=== PATIENT | male | born 1940 | race Caucasian/White ===

== ENCOUNTER 2016-07-07 13:50 | Inpatient (IN) | payer OTHER ==
[~2016-07-07] VITALS: Ht 167.6 cm; Wt 75.4 kg
[~2016-07-07 13:50] MED LIST: AMIO200T2 PO; AMLO-511 PO; ASCO500 PO; ASPI81TA42 PO; BETH25 PO; BIMA12.5OS OU; BRIM155OS OU; FINA5TAB41 PO; FLUT1DIS5 IH; FURO20TA4 PO; LEVO75 PO; METF500T7 PO; MONT10TA24 PO; PANT40TA25 PO; PRED5L PO; RIVA20TA PO; ROSU10 PO; TAMS0.4C32 PO; TIMO.5OS OU; TIOT185 IH; VITAD1000 PO
[2016-07-07 14:32] LABS: GLUCOSE,POINT OF CARE 91 MG/DL (70-110)
[2016-07-07 15:14] LABS: BASOPHILS % (AUTO) 0.4 % (0.0-2.0); HEMOGLOBIN 9.5 g/dL (13.5-17.5); LYMPHOCYTES # (AUTO) 0.8 K/uL (1.0-4.8); LYMPHOCYTES % (AUTO) 9.5 % (22.0-44.0); MEAN CORPUSCULAR HEMOGLOBIN 24.2 pg (26.0-34.0); MEAN CORPUSCULAR HGB CONC 31.7 G/dL (31.0-37.0); MEAN CORPUSCULAR VOLUME 76 fL (80-100); MONOCYTES % (AUTO) 12.4 % (2.0-9.0); NEUTROPHILS % (AUTO) 75.7 % (40.0-70.0); PLATELET COUNT (AUTO) 269 K/uL (150-450); RED BLOOD CELL COUNT(AUTO) 3.93 MIL/uL (4.50-5.90); RED CELL DISTRIBUTION WIDTH 17.2 % (11.5-14.5)
[2016-07-07 15:33] LABS: ANION GAP 8 mmol/L (8-16); CALCIUM, TOTAL 8.4 mg/dL (8.8-10.5); CARBON DIOXIDE 28 mmol/L (22-29); CHLORIDE 105 mmol/L (98-107); GLOMERULAR FILTR. RATE CALC > 60 mL/min (>60); POTASSIUM 3.6 mmol/L (3.5-5.1); SODIUM SERUM 141 mmol/L (136-145); UREA NITROGEN, BLOOD 13 mg/dL (7-18)
[2016-07-07 15:46] LABS: ALANINE AMINOTRANSFERASE 11 U/L (12-78); ALBUMIN 3.4 g/dL (3.4-5.0); ASPARTATE AMINOTRANSFERASE 12 U/L (15-37); B-TYPE NATRIURETIC PEPTIDE 313 pg/mL (0-100); BILIRUBIN,TOTAL 0.4 mg/dL (0.1-1.0); THYROID STIMULATING HORMONE 1.45 uIU/mL (0.36-3.74); TOTAL PROTEIN, SERUM 7.4 g/dL (6.4-8.2)
[2016-07-07 16:13] LABS: RBC MORPHOLOGY COMMENT ABNORMAL RBC MORPH
[2016-07-07 16:26] LABS: ADD UA MICROSCOPIC NO; APPEARANCE,URINE CLEAR (CLEAR); GLUCOSE, URINE (UA) NEGATIVE (NEGATIVE); KETONES,URINE NEGATIVE (NEGATIVE); LEUKOCYTE ESTERASE ,URINE NEGATIVE (NEGATIVE); OCCULT BLOOD,URINE NEGATIVE (NEGATIVE); PROTEIN,URINE NEGATIVE (NEGATIVE)
[2016-07-07 17:11] LABS: INR 1.4 (0.9-1.1); PROTHROMBIN TIME 15.1 SEC (9.4-11.6)
[2016-07-07] MEDS ORDERED: FUROSEMIDE 40 MG/4 ML VIAL IVP ONE (17:15)
[2016-07-07] MEDS ORDERED: IPRATROPIUM BROMIDE 0.5 MG/2.5 ML NEB SOLUTION NEB ONE (17:15)
[2016-07-07] MEDS ORDERED: NITROGLYCERIN 2% (1 GM=INCH) PACKET TP ONE (17:15)
[2016-07-07] MEDS ORDERED: ALBUTEROL SULFATE 2.5 MG/0.5 ML NEB SOLUTION NEB ONE (17:15)
[2016-07-07] MEDS ORDERED: 0.9% SODIUM CHLORIDE 10 ML SYRINGE IVP PRN (18:45)
[2016-07-07] MEDS ORDERED: ACETAMINOPHEN 325 MG TABLET PO PRN (18:45)
[2016-07-07] MEDS ORDERED: ONDANSETRON HCL 4 MG/2 ML VIAL IVP PRN (18:45)
[2016-07-07] MEDS ORDERED: IPRATROPIUM BROMIDE 0.5 MG/2.5 ML NEB SOLUTION NEB SCH (20:00)
[2016-07-07] MEDS ORDERED: ALBUTEROL SULFATE 2.5 MG/0.5 ML NEB SOLUTION NEB SCH (20:00)
[2016-07-07 21:51] VITALS: BP 124/67
[2016-07-08] VITALS (7 sets, daily range): BP systolic 100–125; BP diastolic 56–92
[2016-07-08] MEDS: RIVAROXABAN 20 MG TABLET PO SCH ×2 (00:26→17:22)
[2016-07-08] MEDS: LEVOTHYROXINE SODIUM 75 MCG TABLET PO SCH (06:23)
[2016-07-08] MEDS: HYDROCODONE/ACETAMINOPHEN 5-325 MG TABLET PO PRN ×2 (06:49→13:48)
[2016-07-08 07:40] LABS: BASOPHILS % (AUTO) 0.4 % (0.0-2.0); EOSINOPHILS % (AUTO) 2.5 % (1.0-6.0); HEMOGLOBIN 9.7 g/dL (13.5-17.5); LYMPHOCYTES # (AUTO) 0.7 K/uL (1.0-4.8); LYMPHOCYTES % (AUTO) 10.2 % (22.0-44.0); MEAN CORPUSCULAR HEMOGLOBIN 23.9 pg (26.0-34.0); MEAN CORPUSCULAR HGB CONC 31.3 G/dL (31.0-37.0); MEAN CORPUSCULAR VOLUME 76 fL (80-100); MONOCYTES % (AUTO) 14.8 % (2.0-9.0); NEUTROPHILS # (AUTO) 4.8 K/uL (1.8-7.7); NEUTROPHILS % (AUTO) 72.1 % (40.0-70.0); PLATELET COUNT (AUTO) 277 K/uL (150-450); RED BLOOD CELL COUNT(AUTO) 4.06 MIL/uL (4.50-5.90); RED CELL DISTRIBUTION WIDTH 17.7 % (11.5-14.5); WHITE BLOOD COUNT (AUTO) 6.7 K/uL (4.5-11.0)
[2016-07-08 07:58] LABS: ALANINE AMINOTRANSFERASE 11 U/L (12-78); ALBUMIN 3.2 g/dL (3.4-5.0); ANION GAP 9 mmol/L (8-16); ASPARTATE AMINOTRANSFERASE 11 U/L (15-37); BILIRUBIN,TOTAL 0.5 mg/dL (0.1-1.0); CALCIUM, TOTAL 8.8 mg/dL (8.8-10.5); CARBON DIOXIDE 30 mmol/L (22-29); CHLORIDE 104 mmol/L (98-107); CREATININE 0.78 mg/dL (0.60-1.30); GLOMERULAR FILTR. RATE CALC > 60 mL/min (>60); POTASSIUM 3.7 mmol/L (3.5-5.1); SODIUM SERUM 143 mmol/L (136-145); TOTAL PROTEIN, SERUM 7.5 g/dL (6.4-8.2); UREA NITROGEN, BLOOD 11 mg/dL (7-18)
[2016-07-08] MEDS: BRIMONIDINE TARTRATE 0.15% 5 ML OPHTHALMIC SOLUTION OU SCH (08:06)
[2016-07-08] MEDS: TIMOLOL MALEATE 0.5% 5 ML OPHTHALMIC SOLUTION OU SCH (08:06)
[2016-07-08] MEDS: FUROSEMIDE 20 MG TABLET PO SCH (08:07)
[2016-07-08] MEDS: ASCORBIC ACID 500 MG TABLET PO SCH (08:07)
[2016-07-08] MEDS: MetFORMIN HCL 500 MG ER TABLET PO SCH (08:07)
[2016-07-08] MEDS: MONTELUKAST SODIUM 10 MG TABLET PO SCH (08:07)
[2016-07-08] MEDS: ROSUVASTATIN CALCIUM 10 MG TABLET PO SCH (08:07)
[2016-07-08] MEDS: TAMSULOSIN HCL 0.4 MG CAPSULE PO SCH (08:07)
[2016-07-08] MEDS: BETHANECHOL CHLORIDE 25 MG TABLET PO SCH (08:07)
[2016-07-08] MEDS: PANTOPRAZOLE SODIUM 40 MG DR TABLET PO SCH (08:07)
[2016-07-08] MEDS: FINASTERIDE 5 MG TABLET PO SCH (08:07)
[2016-07-08] MEDS: BIMATOPROST 0.01% 2.5 ML OPHTHALMIC SOLUTION OU SCH (08:07)
[2016-07-08] MEDS: AMIODARONE HCL 200 MG TABLET PO SCH (08:07)
[2016-07-08] MEDS: AmLODIPine BESYLATE 5 MG TABLET PO SCH (08:07)
[2016-07-08] MEDS: CHOLECALCIFEROL (VIT D3) 1,000 UNITS TABLET PO SCH (08:08)
[2016-07-09] MEDS: HYDROCODONE/ACETAMINOPHEN 5-325 MG TABLET PO PRN ×3 (02:02→18:03)
[2016-07-09 05:30] VITALS: BP 112/71
[2016-07-09] MEDS: LEVOTHYROXINE SODIUM 75 MCG TABLET PO SCH (06:47)
[2016-07-09 07:58] VITALS: BP 121/76
[2016-07-09] MEDS: TAMSULOSIN HCL 0.4 MG CAPSULE PO SCH (09:51)
[2016-07-09] MEDS: BETHANECHOL CHLORIDE 25 MG TABLET PO SCH (09:51)
[2016-07-09] MEDS: CHOLECALCIFEROL (VIT D3) 1,000 UNITS TABLET PO SCH (09:52)
[2016-07-09] MEDS: AmLODIPine BESYLATE 5 MG TABLET PO SCH (09:52)
[2016-07-09] MEDS: MONTELUKAST SODIUM 10 MG TABLET PO SCH (09:52)
[2016-07-09] MEDS: MetFORMIN HCL 500 MG ER TABLET PO SCH (09:52)
[2016-07-09] MEDS: BIMATOPROST 0.01% 2.5 ML OPHTHALMIC SOLUTION OU SCH (09:52)
[2016-07-09] MEDS: AMIODARONE HCL 200 MG TABLET PO SCH (09:52)
[2016-07-09] MEDS: PANTOPRAZOLE SODIUM 40 MG DR TABLET PO SCH (09:52)
[2016-07-09] MEDS: BRIMONIDINE TARTRATE 0.15% 5 ML OPHTHALMIC SOLUTION OU SCH (09:52)
[2016-07-09] MEDS: FINASTERIDE 5 MG TABLET PO SCH (09:52)
[2016-07-09] MEDS: FUROSEMIDE 20 MG TABLET PO SCH (09:52)
[2016-07-09] MEDS: ASCORBIC ACID 500 MG TABLET PO SCH (09:52)
[2016-07-09] MEDS: ROSUVASTATIN CALCIUM 10 MG TABLET PO SCH (09:52)
[2016-07-09] MEDS: TIMOLOL MALEATE 0.5% 5 ML OPHTHALMIC SOLUTION OU SCH (09:52)
[2016-07-09 11:10] VITALS: BP 114/65
[2016-07-09 16:29] VITALS: BP 101/65
[2016-07-09] MEDS: RIVAROXABAN 20 MG TABLET PO SCH (18:03)
[2016-07-09 19:23] VITALS: BP 106/64
[2016-07-09 23:31] VITALS: BP 103/54
[2016-07-10] MEDS: HYDROCODONE/ACETAMINOPHEN 5-325 MG TABLET PO PRN (02:59)
[2016-07-10 04:26] VITALS: BP 107/65
[2016-07-10] MEDS: LEVOTHYROXINE SODIUM 75 MCG TABLET PO SCH (06:31)
[2016-07-10 07:56] VITALS: BP 109/74
[2016-07-10] MEDS: MetFORMIN HCL 500 MG ER TABLET PO SCH (08:33)
[2016-07-10] MEDS: FUROSEMIDE 20 MG TABLET PO SCH (08:34)
[2016-07-10] MEDS: TAMSULOSIN HCL 0.4 MG CAPSULE PO SCH (08:34)
[2016-07-10] MEDS: FINASTERIDE 5 MG TABLET PO SCH (08:34)
[2016-07-10] MEDS: BETHANECHOL CHLORIDE 25 MG TABLET PO SCH (08:34)
[2016-07-10] MEDS: ROSUVASTATIN CALCIUM 10 MG TABLET PO SCH (08:34)
[2016-07-10] MEDS: CHOLECALCIFEROL (VIT D3) 1,000 UNITS TABLET PO SCH (08:34)
[2016-07-10] MEDS: AmLODIPine BESYLATE 5 MG TABLET PO SCH (08:35)
[2016-07-10] MEDS: ASCORBIC ACID 500 MG TABLET PO SCH (08:35)
[2016-07-10] MEDS: AMIODARONE HCL 200 MG TABLET PO SCH (08:35)
[2016-07-10] MEDS: MONTELUKAST SODIUM 10 MG TABLET PO SCH (08:35)
[2016-07-10] MEDS: TIMOLOL MALEATE 0.5% 5 ML OPHTHALMIC SOLUTION OU SCH (08:35)
[2016-07-10] MEDS: PANTOPRAZOLE SODIUM 40 MG DR TABLET PO SCH (08:35)
[2016-07-10] MEDS: BIMATOPROST 0.01% 2.5 ML OPHTHALMIC SOLUTION OU SCH (08:36)
[2016-07-10] MEDS: BRIMONIDINE TARTRATE 0.15% 5 ML OPHTHALMIC SOLUTION OU SCH (08:36)
[2016-07-10 11:53] VITALS: BP 104/61
[2016-07-10 15:58] VITALS: BP 116/75
[2016-07-10] MEDS: RIVAROXABAN 20 MG TABLET PO SCH (18:06)
[2016-07-10 19:19] VITALS: BP 111/63
[2016-07-11 00:12] VITALS: BP 114/70
[2016-07-11 05:04] VITALS: BP 108/56
[2016-07-11] MEDS: LEVOTHYROXINE SODIUM 75 MCG TABLET PO SCH (06:35)
[2016-07-11 07:26] LABS: BASOPHILS % (AUTO) 0.3 % (0.0-2.0); EOSINOPHILS % (AUTO) 2.3 % (1.0-6.0); HEMOGLOBIN 10.6 g/dL (13.5-17.5); LYMPHOCYTES # (AUTO) 0.8 K/uL (1.0-4.8); LYMPHOCYTES % (AUTO) 10.4 % (22.0-44.0); MEAN CORPUSCULAR HEMOGLOBIN 23.8 pg (26.0-34.0); MEAN CORPUSCULAR HGB CONC 31.1 G/dL (31.0-37.0); MEAN CORPUSCULAR VOLUME 77 fL (80-100); MONOCYTES % (AUTO) 13.6 % (2.0-9.0); NEUTROPHILS # (AUTO) 5.6 K/uL (1.8-7.7); NEUTROPHILS % (AUTO) 73.4 % (40.0-70.0); PLATELET COUNT (AUTO) 287 K/uL (150-450); RED BLOOD CELL COUNT(AUTO) 4.43 MIL/uL (4.50-5.90); WHITE BLOOD COUNT (AUTO) 7.6 K/uL (4.5-11.0)
[2016-07-11 07:48] VITALS: BP 112/60
[2016-07-11 07:58] LABS: ANION GAP 6 mmol/L (8-16); CALCIUM, TOTAL 8.7 mg/dL (8.8-10.5); CARBON DIOXIDE 33 mmol/L (22-29); CHLORIDE 101 mmol/L (98-107); GLOMERULAR FILTR. RATE CALC > 60 mL/min (>60); POTASSIUM 4.1 mmol/L (3.5-5.1); SODIUM SERUM 140 mmol/L (136-145); UREA NITROGEN, BLOOD 17 mg/dL (7-18)
[2016-07-11] MEDS: MONTELUKAST SODIUM 10 MG TABLET PO SCH (08:24)
[2016-07-11] MEDS: BETHANECHOL CHLORIDE 25 MG TABLET PO SCH (08:24)
[2016-07-11] MEDS: AMIODARONE HCL 200 MG TABLET PO SCH (08:24)
[2016-07-11] MEDS: FUROSEMIDE 20 MG TABLET PO SCH (08:24)
[2016-07-11] MEDS: MetFORMIN HCL 500 MG ER TABLET PO SCH (08:24)
[2016-07-11] MEDS: PANTOPRAZOLE SODIUM 40 MG DR TABLET PO SCH (08:25)
[2016-07-11] MEDS: FINASTERIDE 5 MG TABLET PO SCH (08:25)
[2016-07-11] MEDS: TAMSULOSIN HCL 0.4 MG CAPSULE PO SCH (08:25)
[2016-07-11] MEDS: ROSUVASTATIN CALCIUM 10 MG TABLET PO SCH (08:25)
[2016-07-11] MEDS: TIMOLOL MALEATE 0.5% 5 ML OPHTHALMIC SOLUTION OU SCH (08:25)
[2016-07-11] MEDS: BRIMONIDINE TARTRATE 0.15% 5 ML OPHTHALMIC SOLUTION OU SCH (08:25)
[2016-07-11] MEDS: AmLODIPine BESYLATE 5 MG TABLET PO SCH (08:25)
[2016-07-11] MEDS: BIMATOPROST 0.01% 2.5 ML OPHTHALMIC SOLUTION OU SCH (08:25)
[2016-07-11] MEDS: ASCORBIC ACID 500 MG TABLET PO SCH (08:26)
[2016-07-11] MEDS: CHOLECALCIFEROL (VIT D3) 1,000 UNITS TABLET PO SCH (08:29)
[2016-07-11 09:10] LABS: RBC MORPHOLOGY COMMENT ABNORMAL RBC MORPH
[2016-07-11 10:58] VITALS: BP 109/64
[2016-07-11 15:46] VITALS: BP 111/58
[2016-07-11] MEDS: RIVAROXABAN 20 MG TABLET PO SCH (18:37)
[2016-07-11] MEDS ORDERED: MAGNESIUM HYDROXIDE SUSPENSION 30 ML UDCUP PO PRN (19:15)
[2016-07-11 19:58] VITALS: BP 132/65
[2016-07-12] VITALS (7 sets, daily range): BP systolic 112–128; BP diastolic 58–73
[2016-07-12] MEDS: LEVOTHYROXINE SODIUM 75 MCG TABLET PO SCH (06:36)
[2016-07-12] MEDS: ROSUVASTATIN CALCIUM 10 MG TABLET PO SCH (08:10)
[2016-07-12] MEDS: MONTELUKAST SODIUM 10 MG TABLET PO SCH (08:10)
[2016-07-12] MEDS: AmLODIPine BESYLATE 5 MG TABLET PO SCH (08:10)
[2016-07-12] MEDS: PANTOPRAZOLE SODIUM 40 MG DR TABLET PO SCH (08:10)
[2016-07-12] MEDS: AMIODARONE HCL 200 MG TABLET PO SCH (08:10)
[2016-07-12] MEDS: CHOLECALCIFEROL (VIT D3) 1,000 UNITS TABLET PO SCH (08:10)
[2016-07-12] MEDS: FUROSEMIDE 20 MG TABLET PO SCH (08:10)
[2016-07-12] MEDS: TAMSULOSIN HCL 0.4 MG CAPSULE PO SCH (08:11)
[2016-07-12] MEDS: ASCORBIC ACID 500 MG TABLET PO SCH (08:11)
[2016-07-12] MEDS: FINASTERIDE 5 MG TABLET PO SCH (08:11)
[2016-07-12] MEDS: TIMOLOL MALEATE 0.5% 5 ML OPHTHALMIC SOLUTION OU SCH (08:14)
[2016-07-12] MEDS: MetFORMIN HCL 500 MG ER TABLET PO SCH (08:14)
[2016-07-12] MEDS: BRIMONIDINE TARTRATE 0.15% 5 ML OPHTHALMIC SOLUTION OU SCH (08:15)
[2016-07-12] MEDS: BIMATOPROST 0.01% 2.5 ML OPHTHALMIC SOLUTION OU SCH (08:15)
[2016-07-12] MEDS: BETHANECHOL CHLORIDE 25 MG TABLET PO SCH (08:15)
[2016-07-12] MEDS: RIVAROXABAN 20 MG TABLET PO SCH (17:15)
[2016-07-13 04:30] VITALS: BP 118/65
[2016-07-13] MEDS: LEVOTHYROXINE SODIUM 75 MCG TABLET PO SCH (06:12)
[2016-07-13 07:10] VITALS: BP 114/54
[2016-07-13] MEDS: PANTOPRAZOLE SODIUM 40 MG DR TABLET PO SCH (08:45)
[2016-07-13] MEDS: MONTELUKAST SODIUM 10 MG TABLET PO SCH (08:46)
[2016-07-13] MEDS: FINASTERIDE 5 MG TABLET PO SCH (08:46)
[2016-07-13] MEDS: FUROSEMIDE 20 MG TABLET PO SCH (08:46)
[2016-07-13] MEDS: TAMSULOSIN HCL 0.4 MG CAPSULE PO SCH (08:46)
[2016-07-13] MEDS: AmLODIPine BESYLATE 5 MG TABLET PO SCH (08:46)
[2016-07-13] MEDS: CHOLECALCIFEROL (VIT D3) 1,000 UNITS TABLET PO SCH (08:46)
[2016-07-13] MEDS: BETHANECHOL CHLORIDE 25 MG TABLET PO SCH (08:47)
[2016-07-13] MEDS: ROSUVASTATIN CALCIUM 10 MG TABLET PO SCH (08:47)
[2016-07-13] MEDS: AMIODARONE HCL 200 MG TABLET PO SCH (08:47)
[2016-07-13] MEDS: MetFORMIN HCL 500 MG ER TABLET PO SCH (08:47)
[2016-07-13] MEDS: ASCORBIC ACID 500 MG TABLET PO SCH (08:47)
[2016-07-13] MEDS: TIMOLOL MALEATE 0.5% 5 ML OPHTHALMIC SOLUTION OU SCH (08:48)
[2016-07-13] MEDS: BRIMONIDINE TARTRATE 0.15% 5 ML OPHTHALMIC SOLUTION OU SCH (08:48)
[2016-07-13] MEDS: BIMATOPROST 0.01% 2.5 ML OPHTHALMIC SOLUTION OU SCH (08:48)
[2016-07-13 11:41] VITALS: BP 103/59
[2016-07-13 16:28] VITALS: BP 112/73
[2016-07-13] MEDS: RIVAROXABAN 20 MG TABLET PO SCH (17:50)
[2016-07-13 19:48] VITALS: BP 121/57
[2016-07-13 22:00] VITALS: BP 119/58
== END 2016-07-13 22:05 | disposition home or self-care (01) | DRG 194 ==
LOC: EMS 13:53 → 5N 19:30
PROVIDERS: ADMIT Family Medicine; ATTEND Family Medicine
DX: I11.0 Hypertensive heart disease with heart failure (principal); J96.91 Respiratory failure, unspecified with hypoxia; I50.43 Acute on chronic combined systolic (congestive) and diastolic (congestive) heart failure; J44.9 Chronic obstructive pulmonary disease, unspecified; I48.91 Unspecified atrial fibrillation; M79.89 Other specified soft tissue disorders; E11.9 Type 2 diabetes mellitus without complications; I34.0 Nonrheumatic mitral (valve) insufficiency; E03.9 Hypothyroidism, unspecified; E78.5 Hyperlipidemia, unspecified; I25.10 Atherosclerotic heart disease of native coronary artery without angina pectoris; K21.9 Gastro-esophageal reflux disease without esophagitis; N40.0 Benign prostatic hyperplasia without lower urinary tract symptoms; E78.00 Pure hypercholesterolemia, unspecified; Z79.01 Long term (current) use of anticoagulants; Z91.030 Bee allergy status; Z79.899 Other long term (current) drug therapy
CPT/HCPCS: 82962; 83735; 84443; 85379; 93005; 93970; 94640; 96374; 97116; 97162; 97165; 97530; 99285; J1940

== ENCOUNTER 2017-11-01 11:49 | Inpatient (IN) | payer OTHER ==
[~2017-11-01] VITALS: Ht 167.6 cm; Wt 72.4 kg
[~2017-11-01 11:49] MED LIST changes: +ACET-784 PO; -AMIO200T2 PO; +AMIO200T44 PO; +ASPI-556 PO; -ASPI81TA42 PO; +AZIT250T9 PO; +BISA10S PR; -FLUT1DIS5 IH; +FURO20 PO; -FURO20TA4 PO; +GUAI10 PO; +LEVO125 PO; -LEVO75 PO; -METF500T7 PO; +METO25XL PO; -MONT10TA24 PO; -PRED5L PO; -TAMS0.4C32 PO
[2017-11-01 12:15] LABS: BASOPHILS % (AUTO) 0.8 % (0.0-2.0); EOSINOPHILS % (AUTO) 2.7 % (1.0-6.0); HEMATOCRIT 25.7 % (41-53); HEMOGLOBIN 8.2 g/dL (13.5-17.5); LYMPHOCYTES # (AUTO) 0.6 K/uL (1.0-4.8); LYMPHOCYTES % (AUTO) 10.1 % (22.0-44.0); MEAN CORPUSCULAR HEMOGLOBIN 21.4 pg (26.0-34.0); MEAN CORPUSCULAR HGB CONC 31.8 G/dL (31.0-37.0); MEAN CORPUSCULAR VOLUME 67 fL (80-100); MONOCYTES # (AUTO) 0.6 K/uL (0.1-1.0); NEUTROPHILS # (AUTO) 4.4 K/uL (1.8-7.7); NEUTROPHILS % (AUTO) 75.4 % (40.0-70.0); PLATELET COUNT (AUTO) 375 K/uL (150-450); RED BLOOD CELL COUNT(AUTO) 3.82 MIL/uL (4.50-5.90); RED CELL DISTRIBUTION WIDTH 18.6 % (11.5-14.5)
[2017-11-01 12:18] LABS: ANION GAP 12 mmol/L (8-16); CALCIUM, TOTAL 8.8 mg/dL (8.8-10.5); CARBON DIOXIDE 24 mmol/L (22-29); CHLORIDE 106 mmol/L (98-107); CREATININE 1.15 mg/dL (0.60-1.30); GLOMERULAR FILTR. RATE CALC > 60 mL/min (>60); GLUCOSE,RANDOM 87 mg/dL (70-110); POTASSIUM 3.8 mmol/L (3.5-5.1); SODIUM SERUM 142 mmol/L (136-145); UREA NITROGEN, BLOOD 16 mg/dL (7-18)
[2017-11-01 12:22] LABS: ALANINE AMINOTRANSFERASE 17 U/L (12-78); ALBUMIN 3.2 g/dL (3.4-5.0); ALKALINE PHOSPHATASE 81 U/L (46-116); ASPARTATE AMINOTRANSFERASE 22 U/L (15-37); BILIRUBIN,TOTAL 0.5 mg/dL (0.1-1.0); TOTAL PROTEIN, SERUM 7.8 g/dL (6.4-8.2)
[2017-11-01] MEDS ORDERED: NITROGLYCERIN 0.4 MG SUBLINGUAL TABLET #25 SL ONE (13:30)
[2017-11-01] MEDS ORDERED: ASPIRIN 81 MG CHEWABLE TABLET PO ONE (13:30)
[2017-11-01] MEDS ORDERED: NITROGLYCERIN 2% (1 GM=INCH) PACKET TP ONE (13:30)
[2017-11-01] MEDS ORDERED: 0.9% SODIUM CHLORIDE 10 ML SYRINGE IVP PRN (16:30)
[2017-11-01] MEDS ORDERED: ONDANSETRON HCL 4 MG/2 ML VIAL IVP PRN (16:30)
[2017-11-01] MEDS ORDERED: ACETAMINOPHEN 325 MG TABLET PO PRN ×2 (16:30→18:45)
[2017-11-01 17:00] VITALS: BP 129/74
[2017-11-01] MEDS: NITROGLYCERIN 2% (1 GM=INCH) PACKET TP SCH (17:15)
[2017-11-01] MEDS: CHOLECALCIFEROL (VIT D3) 1,000 UNITS TABLET PO SCH (18:30)
[2017-11-01] MEDS ORDERED: BISACODYL 10 MG RECTAL RECTAL SUPPOSITORY PR PRN (18:30)
[2017-11-01] MEDS ORDERED: PANTOPRAZOLE SODIUM 40 MG DR TABLET PO SCH (18:30)
[2017-11-01] MEDS ORDERED: ROSUVASTATIN CALCIUM 10 MG TABLET PO SCH (18:30)
[2017-11-01 20:00] VITALS: BP 121/54
[2017-11-01] MEDS: IPRATROPIUM BROMIDE 0.5 MG/2.5 ML NEB SOLUTION NEB SCH (20:00)
[2017-11-01] MEDS: FUROSEMIDE 20 MG/2 ML VIAL IVP SCH (20:17)
[2017-11-01] MEDS: TIOTROPIUM BROMIDE 18 MCG/INH HANDIHALER [5] IH SCH (20:17)
[2017-11-01] MEDS: RIVAROXABAN 20 MG TABLET PO SCH (20:17)
[2017-11-01] MEDS: TIMOLOL MALEATE 0.5% 5 ML OPHTHALMIC SOLUTION OU SCH (20:18)
[2017-11-01] MEDS: BIMATOPROST 0.01% 2.5 ML OPHTHALMIC SOLUTION OU SCH (20:18)
[2017-11-01] MEDS: BRIMONIDINE TARTRATE 0.15% 5 ML OPHTHALMIC SOLUTION OU SCH (20:18)
[2017-11-01] MEDS: IRON SUCROSE COMPLEX 100 MG in SODIUM CHLORIDE 0.9% 100 ML IV SCH (20:18)
[2017-11-01] MEDS: FINASTERIDE 5 MG TABLET PO SCH (20:18)
[2017-11-01] MEDS: ROSUVASTATIN CALCIUM 10 MG TABLET PO SCH (20:18)
[2017-11-01] MEDS: POTASSIUM CHLORIDE 10 MEQ ER TABLET PO SCH (20:18)
[2017-11-02] VITALS: BP 113/52
[2017-11-02] MEDS: NITROGLYCERIN 2% (1 GM=INCH) PACKET TP SCH ×3 (00:24→16:56)
[2017-11-02] MEDS: IPRATROPIUM BROMIDE 0.5 MG/2.5 ML NEB SOLUTION NEB SCH ×4 (02:00→19:59)
[2017-11-02 04:00] VITALS: BP 113/46
[2017-11-02 05:32] LABS: INR 1.8 (0.9-1.1); PROTHROMBIN TIME 18.9 SEC (9.4-11.6)
[2017-11-02 05:38] LABS: ALANINE AMINOTRANSFERASE 17 U/L (12-78); ALBUMIN 2.9 g/dL (3.4-5.0); ALKALINE PHOSPHATASE 77 U/L (46-116); ANION GAP 7 mmol/L (8-16); ASPARTATE AMINOTRANSFERASE 19 U/L (15-37); BILIRUBIN,TOTAL 0.4 mg/dL (0.1-1.0); CALCIUM, TOTAL 8.4 mg/dL (8.8-10.5); CARBON DIOXIDE 28 mmol/L (22-29); CHLORIDE 107 mmol/L (98-107); CREATININE 0.94 mg/dL (0.60-1.30); GLUCOSE,RANDOM 89 mg/dL (70-110); POTASSIUM 4.1 mmol/L (3.5-5.1); SODIUM SERUM 142 mmol/L (136-145); TOTAL PROTEIN, SERUM 7.3 g/dL (6.4-8.2); UREA NITROGEN, BLOOD 15 mg/dL (7-18)
[2017-11-02 05:39] LABS: GLOMERULAR FILTR. RATE CALC > 60 mL/min (>60)
[2017-11-02 05:51] LABS: BASOPHILS % (AUTO) 0.7 % (0.0-2.0); EOSINOPHILS % (AUTO) 2.8 % (1.0-6.0); HEMATOCRIT 25.7 % (41-53); HEMOGLOBIN 8.2 g/dL (13.5-17.5); LYMPHOCYTES # (AUTO) 0.4 K/uL (1.0-4.8); LYMPHOCYTES % (AUTO) 8.2 % (22.0-44.0); MEAN CORPUSCULAR HEMOGLOBIN 21.6 pg (26.0-34.0); MEAN CORPUSCULAR VOLUME 67 fL (80-100); MONOCYTES # (AUTO) 0.7 K/uL (0.1-1.0); MONOCYTES % (AUTO) 13.9 % (2.0-9.0); NEUTROPHILS # (AUTO) 3.8 K/uL (1.8-7.7); NEUTROPHILS % (AUTO) 74.4 % (40.0-70.0); PLATELET COUNT (AUTO) 339 K/uL (150-450); RED BLOOD CELL COUNT(AUTO) 3.81 MIL/uL (4.50-5.90); RED CELL DISTRIBUTION WIDTH 18.5 % (11.5-14.5)
[2017-11-02] MEDS: MORPHINE SULFATE 2 MG/ML SYRINGE IVP PRN (06:43)
[2017-11-02] MEDS: ROSUVASTATIN CALCIUM 10 MG TABLET PO SCH (08:09)
[2017-11-02] MEDS: AmLODIPine BESYLATE 10 MG TABLET PO SCH (08:09)
[2017-11-02] MEDS: CHOLECALCIFEROL (VIT D3) 1,000 UNITS TABLET PO SCH (08:09)
[2017-11-02] MEDS: ASPIRIN 81 MG CHEWABLE TABLET PO SCH (08:09)
[2017-11-02] MEDS: POTASSIUM CHLORIDE 10 MEQ ER TABLET PO SCH ×2 (08:09→21:42)
[2017-11-02] MEDS: FINASTERIDE 5 MG TABLET PO SCH (08:11)
[2017-11-02] MEDS: FUROSEMIDE 20 MG/2 ML VIAL IVP SCH ×2 (08:11→21:42)
[2017-11-02] MEDS: TIOTROPIUM BROMIDE 18 MCG/INH HANDIHALER [5] IH SCH (08:12)
[2017-11-02] MEDS: BIMATOPROST 0.01% 2.5 ML OPHTHALMIC SOLUTION OU SCH (08:12)
[2017-11-02] MEDS: BRIMONIDINE TARTRATE 0.15% 5 ML OPHTHALMIC SOLUTION OU SCH (08:13)
[2017-11-02] MEDS: TIMOLOL MALEATE 0.5% 5 ML OPHTHALMIC SOLUTION OU SCH (08:13)
[2017-11-02 09:50] VITALS: BP 116/63
[2017-11-02 12:00] VITALS: BP 119/58
[2017-11-02 16:10] VITALS: BP 111/62
[2017-11-02] MEDS: RIVAROXABAN 20 MG TABLET PO SCH (18:15)
[2017-11-02 20:00] VITALS: BP 136/26
[2017-11-02] MEDS: IRON SUCROSE COMPLEX 100 MG in SODIUM CHLORIDE 0.9% 100 ML IV SCH (21:41)
[2017-11-03] VITALS (9 sets, daily range): BP systolic 116–137; BP diastolic 40–74
[2017-11-03] MEDS: NITROGLYCERIN 2% (1 GM=INCH) PACKET TP SCH ×3 (00:13→16:26)
[2017-11-03] MEDS: IPRATROPIUM BROMIDE 0.5 MG/2.5 ML NEB SOLUTION NEB SCH ×4 (01:22→20:22)
[2017-11-03] MEDS: MORPHINE SULFATE 2 MG/ML SYRINGE IVP PRN ×2 (07:35→16:27)
[2017-11-03] MEDS: FUROSEMIDE 20 MG/2 ML VIAL IVP SCH ×2 (08:45→20:55)
[2017-11-03] MEDS: FINASTERIDE 5 MG TABLET PO SCH (08:45)
[2017-11-03] MEDS: AmLODIPine BESYLATE 10 MG TABLET PO SCH (08:45)
[2017-11-03] MEDS: ROSUVASTATIN CALCIUM 10 MG TABLET PO SCH (08:45)
[2017-11-03] MEDS: BIMATOPROST 0.01% 2.5 ML OPHTHALMIC SOLUTION OU SCH (08:46)
[2017-11-03] MEDS: ASPIRIN 81 MG CHEWABLE TABLET PO SCH (08:46)
[2017-11-03] MEDS: POTASSIUM CHLORIDE 10 MEQ ER TABLET PO SCH ×2 (08:47→20:55)
[2017-11-03] MEDS: TIOTROPIUM BROMIDE 18 MCG/INH HANDIHALER [5] IH SCH (08:47)
[2017-11-03] MEDS: BRIMONIDINE TARTRATE 0.15% 5 ML OPHTHALMIC SOLUTION OU SCH (08:48)
[2017-11-03] MEDS: CHOLECALCIFEROL (VIT D3) 1,000 UNITS TABLET PO SCH (08:52)
[2017-11-03] MEDS: RIVAROXABAN 20 MG TABLET PO SCH (16:26)
[2017-11-03] MEDS: IRON SUCROSE COMPLEX 100 MG in SODIUM CHLORIDE 0.9% 100 ML IV SCH (20:55)
[2017-11-04] VITALS: BP 123/65
[2017-11-04] MEDS: IPRATROPIUM BROMIDE 0.5 MG/2.5 ML NEB SOLUTION NEB SCH ×4 (03:35→19:34)
[2017-11-04 04:13] VITALS: BP 126/59
[2017-11-04] MEDS: MORPHINE SULFATE 2 MG/ML SYRINGE IVP PRN (04:13)
[2017-11-04 08:00] VITALS: BP 123/63
[2017-11-04] MEDS: NITROGLYCERIN 2% (1 GM=INCH) PACKET TP SCH ×4 (08:06→23:44)
[2017-11-04] MEDS: TIOTROPIUM BROMIDE 18 MCG/INH HANDIHALER [5] IH SCH (08:06)
[2017-11-04] MEDS: FINASTERIDE 5 MG TABLET PO SCH (08:07)
[2017-11-04] MEDS: ROSUVASTATIN CALCIUM 10 MG TABLET PO SCH (08:07)
[2017-11-04] MEDS: POTASSIUM CHLORIDE 10 MEQ ER TABLET PO SCH ×2 (08:08→20:59)
[2017-11-04] MEDS: BIMATOPROST 0.01% 2.5 ML OPHTHALMIC SOLUTION OU SCH (08:08)
[2017-11-04] MEDS: BRIMONIDINE TARTRATE 0.15% 5 ML OPHTHALMIC SOLUTION OU SCH (08:08)
[2017-11-04] MEDS: ASPIRIN 81 MG CHEWABLE TABLET PO SCH (08:09)
[2017-11-04] MEDS: FUROSEMIDE 20 MG/2 ML VIAL IVP SCH ×2 (08:09→20:59)
[2017-11-04] MEDS: CHOLECALCIFEROL (VIT D3) 1,000 UNITS TABLET PO SCH (08:09)
[2017-11-04] MEDS: AmLODIPine BESYLATE 10 MG TABLET PO SCH (08:11)
[2017-11-04 12:00] VITALS: BP 131/68
[2017-11-04 16:00] VITALS: BP 110/41
[2017-11-04] MEDS: IRON SUCROSE COMPLEX 100 MG in SODIUM CHLORIDE 0.9% 100 ML IV SCH (19:37)
[2017-11-04 20:00] VITALS: BP 126/24
[2017-11-05] VITALS (18 sets, daily range): BP systolic 0–127; BP diastolic 0–88
[2017-11-05] MEDS: IPRATROPIUM BROMIDE 0.5 MG/2.5 ML NEB SOLUTION NEB SCH ×4 (01:55→20:13)
[2017-11-05 05:24] LABS: ANION GAP 6 mmol/L (8-16); CALCIUM, TOTAL 8.6 mg/dL (8.8-10.5); CARBON DIOXIDE 31 mmol/L (22-29); CHLORIDE 100 mmol/L (98-107); CREATINE KINASE, TOTAL 58 U/L (39-308); CREATININE 0.86 mg/dL (0.60-1.30); GLOMERULAR FILTR. RATE CALC > 60 mL/min (>60); GLUCOSE,RANDOM 90 mg/dL (70-110); POTASSIUM 4.3 mmol/L (3.5-5.1); SODIUM SERUM 137 mmol/L (136-145); UREA NITROGEN, BLOOD 12 mg/dL (7-18)
[2017-11-05 05:32] LABS: B-TYPE NATRIURETIC PEPTIDE 269 pg/mL (0-100)
[2017-11-05] MEDS: ASPIRIN 81 MG CHEWABLE TABLET PO SCH (07:52)
[2017-11-05] MEDS ORDERED: 0.9% SODIUM CHLORIDE 5 ML NEB SOLUTION NEB ONE (08:04)
[2017-11-05] MEDS: NITROGLYCERIN 2% (1 GM=INCH) PACKET TP SCH ×3 (08:10→23:36)
[2017-11-05] MEDS: TIOTROPIUM BROMIDE 18 MCG/INH HANDIHALER [5] IH SCH (08:11)
[2017-11-05] MEDS: BRIMONIDINE TARTRATE 0.15% 5 ML OPHTHALMIC SOLUTION OU SCH (08:12)
[2017-11-05] MEDS: BIMATOPROST 0.01% 2.5 ML OPHTHALMIC SOLUTION OU SCH (08:12)
[2017-11-05 08:13] LABS: FERRITIN 141 ng/mL (26-388)
[2017-11-05 08:14] LABS: HEMATOCRIT 29.4 % (41-53); HEMOGLOBIN 9.3 g/dL (13.5-17.5); MEAN CORPUSCULAR HEMOGLOBIN 21.2 pg (26.0-34.0); MEAN CORPUSCULAR HGB CONC 31.5 G/dL (31.0-37.0); MEAN CORPUSCULAR VOLUME 67 fL (80-100); PLATELET COUNT (AUTO) 353 K/uL (150-450); RED BLOOD CELL COUNT(AUTO) 4.37 MIL/uL (4.50-5.90); RED CELL DISTRIBUTION WIDTH 18.4 % (11.5-14.5)
[2017-11-05 08:18] LABS: INR 1.2 (0.9-1.1); PROTHROMBIN TIME 12.8 SEC (9.4-11.6)
[2017-11-05] MEDS ORDERED: LIDOCAINE HCL/PF 1% 30 ML VIAL ONE (08:42)
[2017-11-05] MEDS ORDERED: SODIUM BICARBONATE 50 MEQ/50 ML VIAL ONE (08:42)
[2017-11-05] MEDS ORDERED: HEPARIN SODIUM 1000 UNITS/NS 500 ML ONE (08:42)
[2017-11-05] MEDS ORDERED: IOHEXOL 300 MG/ML 150 ML VIAL ONE (08:42)
[2017-11-05 08:45] LABS: % IRON SATURATION 15.9 % (30-44)
[2017-11-05] MEDS ORDERED: ATROPINE SULFATE 0.1 MG/ML 10 ML SYRINGE IVP ONE (09:13)
[2017-11-05] MEDS ORDERED: FentaNYL CITRATE-PF 100 MCG/2 ML VIAL ONE (09:16)
[2017-11-05] MEDS ORDERED: MIDAZOLAM HCL 2 MG/2 ML VIAL ONE (09:16)
[2017-11-05] MEDS ORDERED: HEPARIN SODIUM 1000 UNITS/NS 1,000 ML IARTER ONE (09:47)
[2017-11-05] MEDS ORDERED: SODIUM CHLORIDE 0.9% 500 ML IV ONE (09:47)
[2017-11-05] MEDS ORDERED: IOHEXOL 300 MG/ML 150 ML VIAL IARTER ONE (10:00)
[2017-11-05] MEDS ORDERED: LIDOCAINE 1% 30 ML/SOD BICARB 8.4% 4 ML SQ ONE (10:00)
[2017-11-05 10:06] LABS: BAND NEUTROPHILS % (MANUAL) 3 % (0-5); EOSINOPHILS % (MANUAL) 2 % (1-6); LYMPHOCYTES % (MANUAL) 5 % (22-44); MONOCYTES % (MANUAL) 7 % (2-9); SEGMENTED NEUTROPHILS % 83 % (40-70)
[2017-11-05] MEDS: FINASTERIDE 5 MG TABLET PO SCH (11:29)
[2017-11-05] MEDS: POTASSIUM CHLORIDE 10 MEQ ER TABLET PO SCH ×2 (11:29→20:51)
[2017-11-05] MEDS: FUROSEMIDE 20 MG/2 ML VIAL IVP SCH ×2 (11:29→20:52)
[2017-11-05] MEDS: ROSUVASTATIN CALCIUM 10 MG TABLET PO SCH (11:29)
[2017-11-05] MEDS: AmLODIPine BESYLATE 10 MG TABLET PO SCH (11:29)
[2017-11-05] MEDS: CHOLECALCIFEROL (VIT D3) 1,000 UNITS TABLET PO SCH (11:30)
[2017-11-05 12:50] LABS: FOLATE SERUM 18.5 ng/mL (5.4-)
[2017-11-05] MEDS: IRON SUCROSE COMPLEX 100 MG in SODIUM CHLORIDE 0.9% 100 ML IV SCH (19:15)
[2017-11-06] VITALS (13 sets, daily range): BP systolic 103–147; BP diastolic 41–81
[2017-11-06] MEDS: IPRATROPIUM BROMIDE 0.5 MG/2.5 ML NEB SOLUTION NEB SCH ×4 (02:07→19:39)
[2017-11-06 05:26] LABS: BASOPHILS % (AUTO) 0.4 % (0.0-2.0); EOSINOPHILS % (AUTO) 3.3 % (1.0-6.0); HEMATOCRIT 31.1 % (41-53); HEMOGLOBIN 10.1 g/dL (13.5-17.5); LYMPHOCYTES # (AUTO) 0.6 K/uL (1.0-4.8); MEAN CORPUSCULAR HGB CONC 32.6 G/dL (31.0-37.0); MEAN CORPUSCULAR VOLUME 68 fL (80-100); MONOCYTES # (AUTO) 0.8 K/uL (0.1-1.0); NEUTROPHILS # (AUTO) 5.4 K/uL (1.8-7.7); NEUTROPHILS % (AUTO) 76.3 % (40.0-70.0); PLATELET COUNT (AUTO) 346 K/uL (150-450); RED BLOOD CELL COUNT(AUTO) 4.61 MIL/uL (4.50-5.90); RED CELL DISTRIBUTION WIDTH 18.7 % (11.5-14.5)
[2017-11-06 05:39] LABS: ALANINE AMINOTRANSFERASE 18 U/L (12-78); ALKALINE PHOSPHATASE 94 U/L (46-116); ANION GAP 5 mmol/L (8-16); ASPARTATE AMINOTRANSFERASE 23 U/L (15-37); BILIRUBIN,TOTAL 0.4 mg/dL (0.1-1.0); CALCIUM, TOTAL 8.8 mg/dL (8.8-10.5); CARBON DIOXIDE 32 mmol/L (22-29); CHLORIDE 100 mmol/L (98-107); GLUCOSE,RANDOM 89 mg/dL (70-110); POTASSIUM 4.1 mmol/L (3.5-5.1); SODIUM SERUM 137 mmol/L (136-145); TOTAL PROTEIN, SERUM 7.9 g/dL (6.4-8.2); UREA NITROGEN, BLOOD 12 mg/dL (7-18)
[2017-11-06 05:51] LABS: GLOMERULAR FILTR. RATE CALC > 60 mL/min (>60)
[2017-11-06] MEDS ORDERED: IOHEXOL 300 MG/ML 50 ML VIAL ONE (07:14)
[2017-11-06] MEDS ORDERED: LIDOCAINE HCL/PF 1% 30 ML VIAL ONE ×2 (07:14→07:49)
[2017-11-06] MEDS ORDERED: SODIUM BICARBONATE 50 MEQ/50 ML VIAL ONE (07:14)
[2017-11-06] MEDS ORDERED: LIDOCAINE 1% 30 ML/SOD BICARB 8.4% 4 ML SQ ONE (08:30)
[2017-11-06] MEDS: ASPIRIN 81 MG CHEWABLE TABLET PO SCH (09:00)
[2017-11-06] MEDS: FUROSEMIDE 20 MG/2 ML VIAL IVP SCH ×2 (10:03→20:06)
[2017-11-06] MEDS: CHOLECALCIFEROL (VIT D3) 1,000 UNITS TABLET PO SCH (10:04)
[2017-11-06] MEDS: AmLODIPine BESYLATE 10 MG TABLET PO SCH (10:04)
[2017-11-06] MEDS: ROSUVASTATIN CALCIUM 10 MG TABLET PO SCH (10:06)
[2017-11-06] MEDS: POTASSIUM CHLORIDE 10 MEQ ER TABLET PO SCH ×2 (10:06→20:05)
[2017-11-06] MEDS: FINASTERIDE 5 MG TABLET PO SCH (10:07)
[2017-11-06] MEDS: BIMATOPROST 0.01% 2.5 ML OPHTHALMIC SOLUTION OU SCH (10:08)
[2017-11-06] MEDS: TIOTROPIUM BROMIDE 18 MCG/INH HANDIHALER [5] IH SCH (10:08)
[2017-11-06] MEDS: BRIMONIDINE TARTRATE 0.15% 5 ML OPHTHALMIC SOLUTION OU SCH (10:08)
[2017-11-06] MEDS: NITROGLYCERIN 2% (1 GM=INCH) PACKET TP SCH ×2 (10:10→16:38)
[2017-11-06] MEDS ORDERED: SODIUM CHLORIDE 0.9% 250 ML IV ONE ×2 (13:50→20:24)
[2017-11-06] MEDS: CeFAZolin 1 GM/DEXTROSE 50 ML IV SCH ×2 (14:00→20:05)
[2017-11-06] MEDS: HYDROCODONE/ACETAMINOPHEN 5-325 MG TABLET PO PRN (14:31)
[2017-11-06] MEDS: IRON SUCROSE COMPLEX 100 MG in SODIUM CHLORIDE 0.9% 100 ML IV SCH (20:05)
[2017-11-07] VITALS (8 sets, daily range): BP systolic 102–126; BP diastolic 54–76
[2017-11-07] MEDS: NITROGLYCERIN 2% (1 GM=INCH) PACKET TP SCH ×4 (00:36→23:56)
[2017-11-07] MEDS: IPRATROPIUM BROMIDE 0.5 MG/2.5 ML NEB SOLUTION NEB SCH ×4 (02:05→20:05)
[2017-11-07] MEDS: CeFAZolin 1 GM/DEXTROSE 50 ML IV SCH (02:22)
[2017-11-07] MEDS: HYDROCODONE/ACETAMINOPHEN 5-325 MG TABLET PO PRN (02:27)
[2017-11-07] MEDS ORDERED: MIDAZOLAM HCL 2 MG/2 ML VIAL IVP ONE (05:43)
[2017-11-07] MEDS ORDERED: KETAMINE HCL 50 MG/ML 10 ML VIAL IVP ONE (05:43)
[2017-11-07] MEDS: ROSUVASTATIN CALCIUM 10 MG TABLET PO SCH (08:37)
[2017-11-07] MEDS: FINASTERIDE 5 MG TABLET PO SCH (08:37)
[2017-11-07] MEDS: METOPROLOL TARTRATE 25 MG TABLET PO SCH ×2 (08:37→21:03)
[2017-11-07] MEDS: ASPIRIN 81 MG CHEWABLE TABLET PO SCH (08:37)
[2017-11-07] MEDS: POTASSIUM CHLORIDE 10 MEQ ER TABLET PO SCH ×2 (08:37→21:03)
[2017-11-07] MEDS: FUROSEMIDE 20 MG/2 ML VIAL IVP SCH ×2 (08:38→21:03)
[2017-11-07] MEDS: CHOLECALCIFEROL (VIT D3) 1,000 UNITS TABLET PO SCH (08:38)
[2017-11-07] MEDS: AmLODIPine BESYLATE 5 MG TABLET PO SCH (08:38)
[2017-11-07] MEDS: BRIMONIDINE TARTRATE 0.15% 5 ML OPHTHALMIC SOLUTION OU SCH (08:40)
[2017-11-07] MEDS: BIMATOPROST 0.01% 2.5 ML OPHTHALMIC SOLUTION OU SCH (08:41)
[2017-11-07] MEDS: TIOTROPIUM BROMIDE 18 MCG/INH HANDIHALER [5] IH SCH (08:41)
[2017-11-07] MEDS ORDERED: POLYETHYLENE GLYCOL 3350 17 GM PACKET PO PRN (15:30)
[2017-11-07] MEDS: CEPHALEXIN MONOHYDRATE 500 MG CAPSULE PO SCH ×2 (17:06→21:03)
[2017-11-07] MEDS ORDERED: SODIUM CHLORIDE 0.9% 500 ML IV ONE (20:46)
[2017-11-07] MEDS: IRON SUCROSE COMPLEX 100 MG in SODIUM CHLORIDE 0.9% 100 ML IV SCH (21:02)
[2017-11-08 00:37] VITALS: BP 105/73
[2017-11-08] MEDS: IPRATROPIUM BROMIDE 0.5 MG/2.5 ML NEB SOLUTION NEB SCH ×4 (02:40→19:33)
[2017-11-08 04:02] VITALS: BP 110/52
[2017-11-08 06:39] LABS: BASOPHILS % (AUTO) 0.4 % (0.0-2.0); EOSINOPHILS % (AUTO) 3.6 % (1.0-6.0); HEMATOCRIT 32.8 % (41-53); HEMOGLOBIN 10.5 g/dL (13.5-17.5); LYMPHOCYTES # (AUTO) 0.6 K/uL (1.0-4.8); LYMPHOCYTES % (AUTO) 8.1 % (22.0-44.0); MEAN CORPUSCULAR HGB CONC 32.1 G/dL (31.0-37.0); MEAN CORPUSCULAR VOLUME 69 fL (80-100); NEUTROPHILS # (AUTO) 5.7 K/uL (1.8-7.7); NEUTROPHILS % (AUTO) 74.9 % (40.0-70.0); PLATELET COUNT (AUTO) 298 K/uL (150-450); RED BLOOD CELL COUNT(AUTO) 4.78 MIL/uL (4.50-5.90); RED CELL DISTRIBUTION WIDTH 18.7 % (11.5-14.5)
[2017-11-08 07:03] LABS: ALANINE AMINOTRANSFERASE 19 U/L (12-78); ALKALINE PHOSPHATASE 97 U/L (46-116); ANION GAP 5 mmol/L (8-16); ASPARTATE AMINOTRANSFERASE 26 U/L (15-37); BILIRUBIN,TOTAL 0.3 mg/dL (0.1-1.0); CALCIUM, TOTAL 8.8 mg/dL (8.8-10.5); CARBON DIOXIDE 30 mmol/L (22-29); CHLORIDE 99 mmol/L (98-107); CREATININE 0.91 mg/dL (0.60-1.30); GLOMERULAR FILTR. RATE CALC > 60 mL/min (>60); GLUCOSE,RANDOM 94 mg/dL (70-110); POTASSIUM 4.2 mmol/L (3.5-5.1); SODIUM SERUM 134 mmol/L (136-145); UREA NITROGEN, BLOOD 11 mg/dL (7-18)
[2017-11-08 07:20] VITALS: BP 123/45
[2017-11-08] MEDS: TIOTROPIUM BROMIDE 18 MCG/INH HANDIHALER [5] IH SCH (08:47)
[2017-11-08] MEDS: NITROGLYCERIN 2% (1 GM=INCH) PACKET TP SCH ×2 (08:47→15:26)
[2017-11-08] MEDS: FUROSEMIDE 20 MG/2 ML VIAL IVP SCH ×2 (08:48→20:06)
[2017-11-08] MEDS: BIMATOPROST 0.01% 2.5 ML OPHTHALMIC SOLUTION OU SCH (08:49)
[2017-11-08] MEDS: BRIMONIDINE TARTRATE 0.15% 5 ML OPHTHALMIC SOLUTION OU SCH (08:49)
[2017-11-08] MEDS: ASPIRIN 81 MG CHEWABLE TABLET PO SCH (08:50)
[2017-11-08] MEDS: ROSUVASTATIN CALCIUM 10 MG TABLET PO SCH (08:50)
[2017-11-08] MEDS: POTASSIUM CHLORIDE 10 MEQ ER TABLET PO SCH (08:51)
[2017-11-08] MEDS: CEPHALEXIN MONOHYDRATE 500 MG CAPSULE PO SCH (08:51)
[2017-11-08] MEDS: METOPROLOL TARTRATE 25 MG TABLET PO SCH ×2 (08:51→21:00)
[2017-11-08] MEDS: APIXABAN 2.5 MG TABLET PO SCH (08:51)
[2017-11-08] MEDS: AmLODIPine BESYLATE 5 MG TABLET PO SCH (08:51)
[2017-11-08] MEDS: CHOLECALCIFEROL (VIT D3) 1,000 UNITS TABLET PO SCH (08:52)
[2017-11-08] MEDS: FINASTERIDE 5 MG TABLET PO SCH (08:52)
[2017-11-08 11:18] VITALS: BP 100/48
[2017-11-08] MEDS ORDERED: MAGNESIUM CITRATE 300 ML ORAL SOLUTION PO ONE ×2 (15:00)
[2017-11-08 16:15] VITALS: BP 106/69
[2017-11-08] MEDS: CEPHALEXIN MONOHYDRATE 250 MG CAPSULE PO SCH ×2 (16:18→20:06)
[2017-11-08] MEDS ORDERED: 0.9% SODIUM CHLORIDE 5 ML NEB SOLUTION NEB ONE (19:13)
[2017-11-08 19:19] VITALS: BP 106/60
[2017-11-08] MEDS: IRON SUCROSE COMPLEX 100 MG in SODIUM CHLORIDE 0.9% 100 ML IV SCH (20:05)
[2017-11-09 00:13] VITALS: BP 102/60
[2017-11-09] MEDS: APIXABAN 2.5 MG TABLET PO SCH ×2 (00:20→08:21)
[2017-11-09] MEDS: POTASSIUM CHLORIDE 10 MEQ ER TABLET PO SCH ×2 (00:20→08:21)
[2017-11-09] MEDS: NITROGLYCERIN 2% (1 GM=INCH) PACKET TP SCH ×3 (00:22→15:16)
[2017-11-09] MEDS: IPRATROPIUM BROMIDE 0.5 MG/2.5 ML NEB SOLUTION NEB SCH ×3 (01:50→14:25)
[2017-11-09 03:27] VITALS: BP 117/63
[2017-11-09 07:50] VITALS: BP 106/53
[2017-11-09] MEDS: TIOTROPIUM BROMIDE 18 MCG/INH HANDIHALER [5] IH SCH (08:19)
[2017-11-09] MEDS: BRIMONIDINE TARTRATE 0.15% 5 ML OPHTHALMIC SOLUTION OU SCH (08:20)
[2017-11-09] MEDS: BIMATOPROST 0.01% 2.5 ML OPHTHALMIC SOLUTION OU SCH (08:20)
[2017-11-09] MEDS: ROSUVASTATIN CALCIUM 10 MG TABLET PO SCH (08:21)
[2017-11-09] MEDS: ASPIRIN 81 MG CHEWABLE TABLET PO SCH (08:21)
[2017-11-09] MEDS: FINASTERIDE 5 MG TABLET PO SCH (08:22)
[2017-11-09] MEDS: CHOLECALCIFEROL (VIT D3) 1,000 UNITS TABLET PO SCH (08:22)
[2017-11-09] MEDS: METOPROLOL TARTRATE 25 MG TABLET PO SCH (08:22)
[2017-11-09] MEDS: FUROSEMIDE 20 MG/2 ML VIAL IVP SCH (10:14)
[2017-11-09] MEDS: CEPHALEXIN MONOHYDRATE 500 MG CAPSULE PO SCH ×2 (10:14→15:16)
[2017-11-09 11:01] VITALS: BP 93/57
[2017-11-09] MEDS ORDERED: APIX2.5T PO (11:45)
[2017-11-09] MEDS ORDERED: CEPH500 PO (11:47)
[2017-11-09] MEDS ORDERED: FERR-89 PO (11:49)
[2017-11-09] MEDS ORDERED: METO25 PO (11:50)
[2017-11-09] MEDS ORDERED: NTP TD (11:50)
[2017-11-09] MEDS ORDERED: KDUR10 PO (11:51)
[2017-11-09] MEDS ORDERED: MIRALAX PO (12:33)
[2017-11-09 14:25] VITALS: BP 118/71
== END 2017-11-09 15:45 | disposition home or self-care (01) | DRG 171 ==
LOC: EMS 11:50 → ICU 16:29 → 5S 11-07 16:34
PROVIDERS: ADMIT Internal Medicine; ATTEND Internal Medicine
PROC: 4A023N7 Measurement of Cardiac Sampling and Pressure, Left Heart, Percutaneous Approach (ICD-10-PCS; 2017-11-05)
PROC: B2111ZZ Fluoroscopy of Multiple Coronary Arteries using Low Osmolar Contrast (ICD-10-PCS; 2017-11-05)
PROC: B2151ZZ Fluoroscopy of Left Heart using Low Osmolar Contrast (ICD-10-PCS; 2017-11-05)
PROC: B41J1ZZ Fluoroscopy of Other Lower Arteries using Low Osmolar Contrast (ICD-10-PCS; 2017-11-05)
PROC: 0JH606Z Insertion of Pacemaker, Dual Chamber into Chest Subcutaneous Tissue and Fascia, Open Approach (ICD-10-PCS; principal; 2017-11-06)
PROC: 02HK3JZ Insertion of Pacemaker Lead into Right Ventricle, Percutaneous Approach (ICD-10-PCS; 2017-11-06)
PROC: 02H63JZ Insertion of Pacemaker Lead into Right Atrium, Percutaneous Approach (ICD-10-PCS; 2017-11-06)
DX: I49.5 Sick sinus syndrome (principal); I11.0 Hypertensive heart disease with heart failure; I42.9 Cardiomyopathy, unspecified; I50.22 Chronic systolic (congestive) heart failure; I48.0 Paroxysmal atrial fibrillation; J44.9 Chronic obstructive pulmonary disease, unspecified; E78.00 Pure hypercholesterolemia, unspecified; N40.0 Benign prostatic hyperplasia without lower urinary tract symptoms; K21.9 Gastro-esophageal reflux disease without esophagitis; I34.0 Nonrheumatic mitral (valve) insufficiency; E03.9 Hypothyroidism, unspecified; E78.5 Hyperlipidemia, unspecified; I25.110 Atherosclerotic heart disease of native coronary artery with unstable angina pectoris; D63.8 Anemia in other chronic diseases classified elsewhere; D50.9 Iron deficiency anemia, unspecified; E05.90 Thyrotoxicosis, unspecified without thyrotoxic crisis or storm; I25.9 Chronic ischemic heart disease, unspecified; Z91.030 Bee allergy status; Z79.899 Other long term (current) drug therapy
CPT/HCPCS: 33208; 76000; 82607; 82728; 82746; 83540; 83550; 83735; 85007; 87081; 93005; 93306; 93460; 94640; 99285; J0461; J0690; J1644; J1756; J1940; J2250; J2270; J3010; J3490; J7040; J7050; Q9967

== ENCOUNTER 2018-04-16 17:31 | Inpatient (IN) | payer OTHER ==
[~2018-04-16] VITALS: Ht 162.6 cm; Wt 82.2 kg
[~2018-04-16 17:31] MED LIST changes: -AMIO200T44 PO; -AMLO-511 PO; +APIX2.5T PO; -ASCO500 PO; -AZIT250T9 PO; -BETH25 PO; +CEPH500 PO; +FERR-89 PO; -GUAI10 PO; +KDUR10 PO; +METO25 PO; -METO25XL PO; +MIRALAX PO; -PANT40TA25 PO; -RIVA20TA PO; -TIMO.5OS OU
[2018-04-16] MEDS ORDERED: IPRATROPIUM BROMIDE 0.5 MG/2.5 ML NEB SOLUTION NEB ONE ×3 (18:00→23:00)
[2018-04-16] MEDS ORDERED: ALBUTEROL SULFATE 2.5 MG/0.5 ML NEB SOLUTION NEB ONE ×3 (18:00→23:00)
[2018-04-16 21:47] LABS: BASOPHILS % (AUTO) 0.3 % (0.0-2.0); EOSINOPHILS % (AUTO) 2.8 % (1.0-6.0); HEMATOCRIT 42.9 % (41-53); HEMOGLOBIN 14.5 g/dL (13.5-17.5); LYMPHOCYTES % (AUTO) 16.6 % (22.0-44.0); MEAN CORPUSCULAR HEMOGLOBIN 30.2 pg (26.0-34.0); MEAN CORPUSCULAR HGB CONC 33.8 G/dL (31.0-37.0); MEAN CORPUSCULAR VOLUME 89 fL (80-100); MONOCYTES # (AUTO) 0.9 K/uL (0.1-1.0); NEUTROPHILS % (AUTO) 65.3 % (40.0-70.0); PLATELET COUNT (AUTO) 212 K/uL (150-450); RED BLOOD CELL COUNT(AUTO) 4.81 MIL/uL (4.50-5.90); RED CELL DISTRIBUTION WIDTH 14.1 % (11.5-14.5)
[2018-04-16 22:01] LABS: PROTHROMBIN TIME 10.8 SEC (9.4-11.6)
[2018-04-16 22:02] LABS: ANION GAP 5 mmol/L (8-16); CALCIUM, TOTAL 9.3 mg/dL (8.8-10.5); CARBON DIOXIDE 35 mmol/L (22-29); CHLORIDE 100 mmol/L (98-107); CREATININE 0.72 mg/dL (0.60-1.30); GLUCOSE,RANDOM 111 mg/dL (70-110); POTASSIUM 3.8 mmol/L (3.5-5.1); SODIUM SERUM 140 mmol/L (136-145); UREA NITROGEN, BLOOD 13 mg/dL (7-18)
[2018-04-16 22:18] LABS: GLOMERULAR FILTR. RATE CALC > 60 mL/min (>60)
[2018-04-16 22:21] LABS: APPEARANCE,URINE CLEAR (CLEAR); BILIRUBIN,URINE NEGATIVE (NEGATIVE); GLUCOSE, URINE (UA) NEGATIVE (NEGATIVE); KETONES,URINE NEGATIVE (NEGATIVE); LEUKOCYTE ESTERASE ,URINE SMALL (NEGATIVE); NITRATE,URINE NEGATIVE (NEGATIVE); OCCULT BLOOD,URINE NEGATIVE (NEGATIVE); PH,URINE 6.5 (5.0-8.0); PROTEIN,URINE NEGATIVE (NEGATIVE); UROBILINOGEN,URINE 0.2 mg/dL (<=1.0)
[2018-04-16 22:27] LABS: ALANINE AMINOTRANSFERASE 38 U/L (12-78); ALBUMIN 3.4 g/dL (3.4-5.0); ALKALINE PHOSPHATASE 93 U/L (46-116); ASPARTATE AMINOTRANSFERASE 31 U/L (15-37); BILIRUBIN,TOTAL 0.4 mg/dL (0.1-1.0); CREATINE KINASE, TOTAL ONLY 96 U/L (39-308); TOTAL PROTEIN, SERUM 8.1 g/dL (6.4-8.2)
[2018-04-16 22:30] LABS: BACTERIA,URINE Few /HPF (None Seen); MUCUS,URINE Few LPF (None Seen); RBC,URINE 0-2 /HPF (0-2); SQUAMOUS EPITHELIAL CELL,UR Few /LPF (None Seen)
[2018-04-16 22:36] LABS: B-TYPE NATRIURETIC PEPTIDE 140 pg/mL (0-100)
[2018-04-16] MEDS ORDERED: PredniSONE 20 MG TABLET PO ONE (23:00)
[2018-04-17] MEDS ORDERED: ONDANSETRON HCL 4 MG/2 ML VIAL IVP PRN ×2 (01:30→19:15)
[2018-04-17] MEDS ORDERED: 0.9% SODIUM CHLORIDE 10 ML SYRINGE IVP PRN (01:30)
[2018-04-17] MEDS ORDERED: ACETAMINOPHEN 325 MG TABLET PO PRN (01:30)
[2018-04-17] MEDS: ALBUTEROL SULFATE 2.5 MG/0.5 ML NEB SOLUTION NEB SCH ×2 (02:02→09:19)
[2018-04-17] MEDS: IPRATROPIUM BROMIDE 0.5 MG/2.5 ML NEB SOLUTION NEB SCH ×2 (02:02→09:20)
[2018-04-17 04:35] VITALS: BP 162/91
[2018-04-17 08:40] VITALS: BP 135/72
[2018-04-17 12:20] VITALS: BP 135/80
[2018-04-17 15:53] VITALS: BP 123/95
[2018-04-17] MEDS ORDERED: ACETAMINOPHEN 650 MG/20.3 ML SOLUTION UDCUP PO PRN (19:15)
[2018-04-17] MEDS ORDERED: ENOXAPARIN SODIUM 40 MG/0.4 ML PF SYRINGE SQ SCH (19:15)
[2018-04-17] MEDS ORDERED: LANSOPRAZOLE 30 MG SOLUBLE TABLET PO SCH (19:15)
[2018-04-17] MEDS ORDERED: BENZOCAINE/MENTHOL LOZENGE PO PRN (19:30)
[2018-04-17 20:29] VITALS: BP 126/73
[2018-04-17 20:46] LABS: BASOPHILS % (AUTO) 0.4 % (0.0-2.0); EOSINOPHILS % (AUTO) 0.9 % (1.0-6.0); HEMATOCRIT 39.7 % (41-53); HEMOGLOBIN 13.3 g/dL (13.5-17.5); LYMPHOCYTES # (AUTO) 1.4 K/uL (1.0-4.8); LYMPHOCYTES % (AUTO) 13.3 % (22.0-44.0); MEAN CORPUSCULAR HEMOGLOBIN 29.5 pg (26.0-34.0); MEAN CORPUSCULAR HGB CONC 33.5 G/dL (31.0-37.0); MEAN CORPUSCULAR VOLUME 88 fL (80-100); MONOCYTES # (AUTO) 1.4 K/uL (0.1-1.0); MONOCYTES % (AUTO) 13.3 % (2.0-9.0); NEUTROPHILS # (AUTO) 7.4 K/uL (1.8-7.7); NEUTROPHILS % (AUTO) 72.1 % (40.0-70.0); PLATELET COUNT (AUTO) 205 K/uL (150-450); RED CELL DISTRIBUTION WIDTH 14.3 % (11.5-14.5)
[2018-04-17] MEDS: AZITHROMYCIN 250 MG TABLET PO SCH (20:46)
[2018-04-17] MEDS: MethylPREDNISolone SOD SUCC 40 MG/ML VIAL IVP SCH (20:47)
[2018-04-17 20:55] LABS: INR 1.1 (0.9-1.1)
[2018-04-17 20:58] LABS: ALANINE AMINOTRANSFERASE 31 U/L (12-78); ALKALINE PHOSPHATASE 82 U/L (46-116); ANION GAP 5 mmol/L (8-16); ASPARTATE AMINOTRANSFERASE 22 U/L (15-37); BILIRUBIN,TOTAL 0.4 mg/dL (0.1-1.0); CARBON DIOXIDE 33 mmol/L (22-29); CHLORIDE 102 mmol/L (98-107); CREATININE 0.86 mg/dL (0.60-1.30); GLOMERULAR FILTR. RATE CALC > 60 mL/min (>60); GLUCOSE,RANDOM 220 mg/dL (70-110); POTASSIUM 4.7 mmol/L (3.5-5.1); SODIUM SERUM 140 mmol/L (136-145); TOTAL PROTEIN, SERUM 7.2 g/dL (6.4-8.2); UREA NITROGEN, BLOOD 18 mg/dL (7-18)
[2018-04-17] MEDS ORDERED: ALBUTEROL SULFATE 2.5 MG/0.5 ML NEB SOLUTION NEB SCH (21:00)
[2018-04-17] MEDS ORDERED: IPRATROPIUM BROMIDE 0.5 MG/2.5 ML NEB SOLUTION NEB SCH (21:00)
[2018-04-18] MEDS ORDERED: ACETAMINOPHEN 325 MG TABLET PO PRN (00:15)
[2018-04-18] MEDS ORDERED: BISACODYL 10 MG RECTAL RECTAL SUPPOSITORY PR PRN (00:15)
[2018-04-18] MEDS ORDERED: POLYETHYLENE GLYCOL 3350 17 GM PACKET PO PRN (00:15)
[2018-04-18] MEDS: POTASSIUM CHLORIDE 10 MEQ ER TABLET PO SCH ×3 (00:15→20:08)
[2018-04-18] MEDS: APIXABAN 2.5 MG TABLET PO SCH ×3 (00:15→20:08)
[2018-04-18 00:23] VITALS: BP 112/86
[2018-04-18] MEDS: MethylPREDNISolone SOD SUCC 40 MG/ML VIAL IVP SCH ×5 (00:44→23:43)
[2018-04-18] MEDS: METOPROLOL TARTRATE 25 MG TABLET PO SCH ×3 (00:44→20:08)
[2018-04-18] MEDS: FUROSEMIDE 20 MG TABLET PO SCH ×3 (00:44→20:08)
[2018-04-18 05:21] VITALS: BP 137/93
[2018-04-18 06:07] LABS: EOSINOPHILS % (AUTO) 0 % (1.0-6.0); HEMATOCRIT 40.5 % (41-53); HEMOGLOBIN 13.7 g/dL (13.5-17.5); LYMPHOCYTES # (AUTO) 0.4 K/uL (1.0-4.8); LYMPHOCYTES % (AUTO) 5.8 % (22.0-44.0); MEAN CORPUSCULAR HEMOGLOBIN 30.1 pg (26.0-34.0); MEAN CORPUSCULAR HGB CONC 33.9 G/dL (31.0-37.0); MEAN CORPUSCULAR VOLUME 89 fL (80-100); MONOCYTES # (AUTO) 0.1 K/uL (0.1-1.0); MONOCYTES % (AUTO) 1.7 % (2.0-9.0); NEUTROPHILS # (AUTO) 6.9 K/uL (1.8-7.7); PLATELET COUNT (AUTO) 201 K/uL (150-450); RED BLOOD CELL COUNT(AUTO) 4.56 MIL/uL (4.50-5.90); RED CELL DISTRIBUTION WIDTH 13.9 % (11.5-14.5)
[2018-04-18] MEDS: LEVOTHYROXINE SODIUM 125 MCG TABLET PO SCH (06:11)
[2018-04-18] MEDS: TIOTROPIUM BROMIDE 18 MCG/INH HANDIHALER [5] IH SCH ×4 (06:15→20:07)
[2018-04-18 06:26] LABS: ALANINE AMINOTRANSFERASE 31 U/L (12-78); ALBUMIN 3.1 g/dL (3.4-5.0); ALKALINE PHOSPHATASE 84 U/L (46-116); ANION GAP 10 mmol/L (8-16); ASPARTATE AMINOTRANSFERASE 22 U/L (15-37); BILIRUBIN,TOTAL 0.3 mg/dL (0.1-1.0); CARBON DIOXIDE 27 mmol/L (22-29); CHLORIDE 100 mmol/L (98-107); GLUCOSE,RANDOM 277 mg/dL (70-110); POTASSIUM 4.6 mmol/L (3.5-5.1); SODIUM SERUM 137 mmol/L (136-145); TOTAL PROTEIN, SERUM 7.6 g/dL (6.4-8.2); UREA NITROGEN, BLOOD 16 mg/dL (7-18)
[2018-04-18 06:28] LABS: GLOMERULAR FILTR. RATE CALC > 60 mL/min (>60)
[2018-04-18 06:30] LABS: NEUTROPHILS % (AUTO) 92.5 % (40.0-70.0)
[2018-04-18 07:46] VITALS: BP 146/92
[2018-04-18] MEDS: BIMATOPROST 0.01% 2.5 ML OPHTHALMIC SOLUTION OU SCH (08:18)
[2018-04-18] MEDS: FERROUS SULFATE 325 MG EC TABLET PO SCH ×2 (08:18→17:34)
[2018-04-18] MEDS: BRIMONIDINE TARTRATE 0.15% 5 ML OPHTHALMIC SOLUTION OU SCH (08:18)
[2018-04-18] MEDS: ASPIRIN 81 MG EC TABLET PO SCH (08:19)
[2018-04-18] MEDS: CHOLECALCIFEROL (VIT D3) 1,000 UNITS TABLET PO SCH (08:19)
[2018-04-18] MEDS: AZITHROMYCIN 250 MG TABLET PO SCH (08:20)
[2018-04-18] MEDS: ROSUVASTATIN CALCIUM 10 MG TABLET PO SCH (08:20)
[2018-04-18] MEDS: FINASTERIDE 5 MG TABLET PO SCH (08:20)
[2018-04-18 11:11] VITALS: BP 119/75
[2018-04-18] MEDS ORDERED: SODIUM CHLORIDE 0.9% 100 ML ONE (16:02)
[2018-04-18] MEDS ORDERED: IOVERSOL 320 MG/ML 100 ML VIAL ONE (16:02)
[2018-04-18 16:09] VITALS: BP 146/67
[2018-04-18 19:40] VITALS: BP 144/74
[2018-04-19] VITALS (7 sets, daily range): BP systolic 130–151; BP diastolic 72–92
[2018-04-19] MEDS: TIOTROPIUM BROMIDE 18 MCG/INH HANDIHALER [5] IH SCH ×3 (02:45→14:40)
[2018-04-19] MEDS: MethylPREDNISolone SOD SUCC 40 MG/ML VIAL IVP SCH ×4 (05:34→23:47)
[2018-04-19] MEDS: LEVOTHYROXINE SODIUM 125 MCG TABLET PO SCH (05:34)
[2018-04-19] MEDS: AZITHROMYCIN 250 MG TABLET PO SCH (08:24)
[2018-04-19] MEDS: ASPIRIN 81 MG EC TABLET PO SCH (08:24)
[2018-04-19] MEDS: CHOLECALCIFEROL (VIT D3) 1,000 UNITS TABLET PO SCH (08:24)
[2018-04-19] MEDS: FUROSEMIDE 20 MG TABLET PO SCH ×2 (08:24→20:05)
[2018-04-19] MEDS: FINASTERIDE 5 MG TABLET PO SCH (08:24)
[2018-04-19] MEDS: ROSUVASTATIN CALCIUM 10 MG TABLET PO SCH (08:24)
[2018-04-19] MEDS: FERROUS SULFATE 325 MG EC TABLET PO SCH ×2 (08:24→17:52)
[2018-04-19] MEDS: METOPROLOL TARTRATE 25 MG TABLET PO SCH ×2 (08:24→20:05)
[2018-04-19] MEDS: APIXABAN 2.5 MG TABLET PO SCH ×2 (08:25→20:05)
[2018-04-19] MEDS: POTASSIUM CHLORIDE 10 MEQ ER TABLET PO SCH ×2 (08:25→20:05)
[2018-04-19] MEDS: BRIMONIDINE TARTRATE 0.15% 5 ML OPHTHALMIC SOLUTION OU SCH (08:27)
[2018-04-19] MEDS: BIMATOPROST 0.01% 2.5 ML OPHTHALMIC SOLUTION OU SCH (08:27)
[2018-04-20 05:15] VITALS: BP 151/97
[2018-04-20] MEDS: LEVOTHYROXINE SODIUM 125 MCG TABLET PO SCH (05:26)
[2018-04-20] MEDS: MethylPREDNISolone SOD SUCC 40 MG/ML VIAL IVP SCH ×2 (05:26→11:41)
[2018-04-20 08:30] VITALS: BP 143/84
[2018-04-20] MEDS: AZITHROMYCIN 250 MG TABLET PO SCH (08:38)
[2018-04-20] MEDS: FINASTERIDE 5 MG TABLET PO SCH (08:38)
[2018-04-20] MEDS: APIXABAN 2.5 MG TABLET PO SCH ×2 (08:38→20:07)
[2018-04-20] MEDS: METOPROLOL TARTRATE 25 MG TABLET PO SCH ×2 (08:38→20:07)
[2018-04-20] MEDS: CHOLECALCIFEROL (VIT D3) 1,000 UNITS TABLET PO SCH (08:38)
[2018-04-20] MEDS: ROSUVASTATIN CALCIUM 10 MG TABLET PO SCH (08:39)
[2018-04-20] MEDS: ASPIRIN 81 MG EC TABLET PO SCH (08:39)
[2018-04-20] MEDS: POTASSIUM CHLORIDE 10 MEQ ER TABLET PO SCH ×2 (08:39→20:07)
[2018-04-20] MEDS: FERROUS SULFATE 325 MG EC TABLET PO SCH ×2 (08:39→18:08)
[2018-04-20] MEDS: BRIMONIDINE TARTRATE 0.15% 5 ML OPHTHALMIC SOLUTION OU SCH (08:40)
[2018-04-20] MEDS: BIMATOPROST 0.01% 2.5 ML OPHTHALMIC SOLUTION OU SCH (08:40)
[2018-04-20] MEDS: TIOTROPIUM BROMIDE 18 MCG/INH HANDIHALER [5] IH SCH (08:41)
[2018-04-20] MEDS: FUROSEMIDE 20 MG TABLET PO SCH ×2 (08:51→20:07)
[2018-04-20 11:22] VITALS: BP 136/95
[2018-04-20 15:48] VITALS: BP 141/81
[2018-04-20 20:03] VITALS: BP 156/86
[2018-04-21 00:34] VITALS: BP 144/89
[2018-04-21] MEDS: LEVOTHYROXINE SODIUM 125 MCG TABLET PO SCH (04:51)
[2018-04-21 05:03] VITALS: BP 102/65
[2018-04-21 07:49] VITALS: BP 143/79
[2018-04-21] MEDS: ASPIRIN 81 MG EC TABLET PO SCH (08:40)
[2018-04-21] MEDS: FUROSEMIDE 20 MG TABLET PO SCH (08:40)
[2018-04-21] MEDS: FERROUS SULFATE 325 MG EC TABLET PO SCH (08:40)
[2018-04-21] MEDS: CHOLECALCIFEROL (VIT D3) 1,000 UNITS TABLET PO SCH (08:40)
[2018-04-21] MEDS: AZITHROMYCIN 250 MG TABLET PO SCH (08:40)
[2018-04-21] MEDS: FINASTERIDE 5 MG TABLET PO SCH (08:40)
[2018-04-21] MEDS: APIXABAN 2.5 MG TABLET PO SCH (08:41)
[2018-04-21] MEDS: BRIMONIDINE TARTRATE 0.15% 5 ML OPHTHALMIC SOLUTION OU SCH (08:41)
[2018-04-21] MEDS: METOPROLOL TARTRATE 25 MG TABLET PO SCH (08:41)
[2018-04-21] MEDS: POTASSIUM CHLORIDE 10 MEQ ER TABLET PO SCH (08:41)
[2018-04-21] MEDS: BIMATOPROST 0.01% 2.5 ML OPHTHALMIC SOLUTION OU SCH (08:42)
[2018-04-21] MEDS: TIOTROPIUM BROMIDE 18 MCG/INH HANDIHALER [5] IH SCH (08:45)
[2018-04-21] MEDS: ROSUVASTATIN CALCIUM 10 MG TABLET PO SCH (08:47)
[2018-04-21] MEDS ORDERED: PredniSONE 20 MG TABLET PO SCH (09:00)
[2018-04-21 11:12] VITALS: BP 142/90
[2018-04-21] MEDS ORDERED: PRED10 PO (11:23)
[2018-04-21] MEDS ORDERED: PRED5 PO (11:23)
[2018-04-21] MEDS ORDERED: FLUT1BLS IH (11:24)
== END 2018-04-21 14:30 | disposition home or self-care (01) | DRG 145 ==
LOC: EMS 17:32 → 5N 04-17 04:14
PROVIDERS: ADMIT Internal Medicine; ATTEND Internal Medicine
DX: J20.9 Acute bronchitis, unspecified (principal); I48.91 Unspecified atrial fibrillation; J44.0 Chronic obstructive pulmonary disease with (acute) lower respiratory infection; I11.0 Hypertensive heart disease with heart failure; I50.32 Chronic diastolic (congestive) heart failure; R13.10 Dysphagia, unspecified; J44.1 Chronic obstructive pulmonary disease with (acute) exacerbation; Z79.01 Long term (current) use of anticoagulants; E78.5 Hyperlipidemia, unspecified; E78.00 Pure hypercholesterolemia, unspecified; E03.9 Hypothyroidism, unspecified; I25.10 Atherosclerotic heart disease of native coronary artery without angina pectoris; K21.9 Gastro-esophageal reflux disease without esophagitis; N40.0 Benign prostatic hyperplasia without lower urinary tract symptoms; R09.02 Hypoxemia; Z91.030 Bee allergy status
CPT/HCPCS: 70491; 92610; 93005; 94640; G0378; J1650; J2920; J7050

== ENCOUNTER 2019-05-27 20:08 | Inpatient (IN) | payer OTHER ==
[~2019-05-27] VITALS: Ht 157.5 cm; Wt 75.3 kg
[~2019-05-27 20:08] MED LIST changes: -BRIM155OS OU; -CEPH500 PO; +CHOL100018 PO; +FINA-27 PO; -FINA5TAB41 PO; +FLUT1BLS IH; +PRED10 PO; +PRED5 PO; -ROSU10 PO; +ROSU10TA22 PO; -VITAD1000 PO
[2019-05-27 20:40] LABS: GLUCOSE,POINT OF CARE 131 MG/DL (70-110)
[2019-05-27] MEDS ORDERED: CHOL100018 PO (20:43)
[2019-05-27] MEDS ORDERED: POLY17PO20 PO (20:43)
[2019-05-27] MEDS ORDERED: IPRATROPIUM BROMIDE 0.5 MG/2.5 ML NEB SOLUTION NEB ONE ×2 (20:45)
[2019-05-27] MEDS ORDERED: ALBUTEROL SULFATE 2.5 MG/0.5 ML NEB SOLUTION NEB ONE (20:45)
[2019-05-27] MEDS ORDERED: LEVALBUTEROL HCL 1.25 MG/0.5 ML NEB SOLUTION NEB ONE (20:45)
[2019-05-27] MEDS ORDERED: 0.9% SODIUM CHLORIDE 5 ML NEB SOLUTION NEB ONE (20:52)
[2019-05-27 21:29] LABS: BASOPHILS % (AUTO) 0.2 % (0.0-2.0); EOSINOPHILS % (AUTO) 0 % (1.0-6.0); HEMATOCRIT 36.6 % (41-53); HEMOGLOBIN 12.1 g/dL (13.5-17.5); LYMPHOCYTES # (AUTO) 0.8 K/uL (1.0-4.8); LYMPHOCYTES % (AUTO) 5.3 % (22.0-44.0); MEAN CORPUSCULAR VOLUME 91 fL (80-100); MONOCYTES # (AUTO) 2.3 K/uL (0.1-1.0); MONOCYTES % (AUTO) 14.5 % (2.0-9.0); NEUTROPHILS # (AUTO) 12.5 K/uL (1.8-7.7); PLATELET COUNT (AUTO) 178 K/uL (150-450); RED BLOOD CELL COUNT(AUTO) 4.03 MIL/uL (4.50-5.90); RED CELL DISTRIBUTION WIDTH 13.2 % (11.5-14.5)
[2019-05-27] MEDS ORDERED: SODIUM CHLORIDE 0.9% 1,000 ML IV ONE (21:30)
[2019-05-27] MEDS ORDERED: PIPERACILLIN/TAZO 3.375 GM/D5W 50 ML IV ONE (21:30)
[2019-05-27] MEDS ORDERED: AZITHROMYCIN 500 MG/NS 250 ML IV ONE (21:30)
[2019-05-27 21:37] LABS: ANION GAP 12 mmol/L (8-16); CALCIUM, TOTAL 10.2 mg/dL (8.8-10.5); CARBON DIOXIDE 26 mmol/L (22-29); CHLORIDE 98 mmol/L (98-107); CREATININE 1.14 mg/dL (0.60-1.30); GLUCOSE,RANDOM 126 mg/dL (70-110); POTASSIUM 3.9 mmol/L (3.5-5.1); SODIUM SERUM 136 mmol/L (136-145); UREA NITROGEN, BLOOD 32 mg/dL (7-18)
[2019-05-27 21:45] LABS: GLOMERULAR FILTR. RATE CALC > 60 mL/min (>60)
[2019-05-27 21:52] LABS: ALANINE AMINOTRANSFERASE 20 U/L (12-78); ALBUMIN 3.7 g/dL (3.4-5.0); ALKALINE PHOSPHATASE 73 U/L (46-116); ASPARTATE AMINOTRANSFERASE 29 U/L (15-37); BILIRUBIN,TOTAL 0.7 mg/dL (0.1-1.0); CREATINE KINASE, TOTAL ONLY 288 U/L (39-308); TOTAL PROTEIN, SERUM 8.9 g/dL (6.4-8.2)
[2019-05-27] MEDS ORDERED: VANCOMYCIN HCL 1.5 GM in DEXTROSE 5%-WATER 250 ML IV ONE (22:00)
[2019-05-27 22:02] LABS: B-TYPE NATRIURETIC PEPTIDE 407 pg/mL (0-100)
[2019-05-27 22:15] LABS: PLATELET MORPHOLOGY COMMENT LARGE PLTS PRESENT
[2019-05-27 23:36] LABS: APPEARANCE,URINE CLOUDY (CLEAR); BILIRUBIN,URINE NEGATIVE (NEGATIVE); GLUCOSE, URINE (UA) NEGATIVE (NEGATIVE); KETONES,URINE NEGATIVE (NEGATIVE); LEUKOCYTE ESTERASE ,URINE NEGATIVE (NEGATIVE); NITRATE,URINE NEGATIVE (NEGATIVE); OCCULT BLOOD,URINE MODERATE (NEGATIVE); PROTEIN,URINE SEE CONFIRM (NEGATIVE); UROBILINOGEN,URINE 0.2 mg/dL (<=1.0)
[2019-05-27 23:44] LABS: SULFOSALICYLIC ACID,URINE 3+ (Negative)
[2019-05-27 23:45] LABS: BACTERIA,URINE Few /HPF (None Seen); RBC,URINE 0-2 /HPF (0-2); SQUAMOUS EPITHELIAL CELL,UR Few /LPF (None Seen)
[2019-05-27 23:46] LABS: AMORPHOUS SEDIMENT,UR Moderate /LPF (None Seen); WBC,URINE 0-2 /HPF (0-5)
[2019-05-28] MEDS ORDERED: MethylPREDNISolone SOD SUCC 125 MG/2 ML VIAL IVP ONE (00:45)
[2019-05-28] MEDS ORDERED: ACETAMINOPHEN 325 MG TABLET PO PRN (00:45)
[2019-05-28] MEDS ORDERED: ACETAMINOPHEN 325 MG TABLET PO ONE (00:45)
[2019-05-28] MEDS ORDERED: 0.9% SODIUM CHLORIDE 10 ML SYRINGE IVP PRN (00:45)
[2019-05-28 01:06] LABS: INFLUENZA TYPE A POSITIVE FOR TYPE A (NEGATIVE); INFLUENZA TYPE B NEGATIVE FOR TYPE B (NEGATIVE)
[2019-05-28 01:34] VITALS: BP 115/70
[2019-05-28] MEDS ORDERED: AMIODARONE HCL 150 MG in DEXTROSE 5%-WATER 97 ML IV ONE (03:15)
[2019-05-28] MEDS ORDERED: AMIODARONE HCL 360 MG in DEXTROSE 5%-WATER 242.8 ML IV ONE (03:30)
[2019-05-28 04:00] VITALS: BP 121/71
[2019-05-28] MEDS ORDERED: IPRATROPIUM BROMIDE 0.5 MG/2.5 ML NEB SOLUTION NEB PRN (07:15)
[2019-05-28] MEDS ORDERED: ALBUTEROL SULFATE 2.5 MG/0.5 ML NEB SOLUTION NEB PRN (07:15)
[2019-05-28 07:38] LABS: GLUCOSE,POINT OF CARE 178 MG/DL (70-110)
[2019-05-28 08:00] VITALS: BP 114/21
[2019-05-28] MEDS: LEVOFLOXACIN 750 MG/D5% WATER 150 ML IV SCH (08:13)
[2019-05-28] MEDS: FERROUS SULFATE 325 MG EC TABLET PO SCH ×2 (08:13→16:41)
[2019-05-28] MEDS: MethylPREDNISolone SOD SUCC 125 MG/2 ML VIAL IVP SCH ×2 (08:13→16:41)
[2019-05-28] MEDS: CHOLECALCIFEROL (VIT D3) 1,000 UNITS TABLET PO SCH (08:14)
[2019-05-28] MEDS: ASPIRIN 81 MG EC TABLET PO SCH (08:14)
[2019-05-28] MEDS: GuaiFENesin SR 600 MG ER TABLET PO SCH ×2 (08:14→20:28)
[2019-05-28] MEDS: FUROSEMIDE 20 MG TABLET PO SCH ×2 (08:14→20:28)
[2019-05-28] MEDS: ROSUVASTATIN CALCIUM 10 MG TABLET PO SCH (08:14)
[2019-05-28] MEDS: BENZONATATE 100 MG CAPSULE PO SCH ×3 (08:14→20:28)
[2019-05-28] MEDS: FLUTICASONE/VILANTEROL 200-25 MCG/INH INHALER [14] IH SCH (08:15)
[2019-05-28] MEDS: BIMATOPROST 0.01% 2.5 ML OPHTHALMIC SOLUTION OU SCH (08:15)
[2019-05-28] MEDS: OSELTAMIVIR PHOSPHATE 75 MG CAPSULE PO SCH ×2 (08:15→20:28)
[2019-05-28] MEDS ORDERED: SODIUM CHLORIDE 0.9% 250 ML IV ONE ×2 (08:19→08:24)
[2019-05-28] MEDS ORDERED: AMIODARONE HCL 540 MG in DEXTROSE 5%-WATER 239.2 ML IV ONE (09:30)
[2019-05-28] MEDS: ALBUTEROL SULFATE 2.5 MG/0.5 ML NEB SOLUTION NEB PRN ×2 (09:42→20:52)
[2019-05-28] MEDS: BUDESONIDE 0.5 MG/2 ML NEB SOLUTION NEB SCH ×2 (09:42→20:52)
[2019-05-28] MEDS: IPRATROPIUM BROMIDE 0.5 MG/2.5 ML NEB SOLUTION NEB PRN ×2 (09:42→20:52)
[2019-05-28 12:00] VITALS: BP 124/71
[2019-05-28 16:00] VITALS: BP 129/56
[2019-05-28 20:00] VITALS: BP 144/81
[2019-05-28] MEDS: APIXABAN 2.5 MG TABLET PO SCH (20:28)
[2019-05-29] VITALS: BP 128/73
[2019-05-29] MEDS: HYDROCODONE/CHLORPHEN POLIS 10-8 MG/5 ML ORAL.SYG PO PRN (00:03)
[2019-05-29] MEDS: MethylPREDNISolone SOD SUCC 125 MG/2 ML VIAL IVP SCH ×3 (00:03→16:07)
[2019-05-29] MEDS ORDERED: AMIODARONE HCL 750 MG in DEXTROSE 5%-WATER 485 ML IV SCH (03:30)
[2019-05-29] MEDS: ALBUTEROL SULFATE 2.5 MG/0.5 ML NEB SOLUTION NEB PRN ×2 (03:58→21:31)
[2019-05-29] MEDS: IPRATROPIUM BROMIDE 0.5 MG/2.5 ML NEB SOLUTION NEB PRN (03:58)
[2019-05-29 04:00] VITALS: BP 126/84
[2019-05-29 05:05] LABS: EOSINOPHILS % (AUTO) 0 % (1.0-6.0); HEMATOCRIT 33.7 % (41-53); HEMOGLOBIN 11.1 g/dL (13.5-17.5); LYMPHOCYTES # (AUTO) 0.4 K/uL (1.0-4.8); LYMPHOCYTES % (AUTO) 2.8 % (22.0-44.0); MEAN CORPUSCULAR HEMOGLOBIN 29.8 pg (26.0-34.0); MEAN CORPUSCULAR HGB CONC 32.9 G/dL (31.0-37.0); MEAN CORPUSCULAR VOLUME 91 fL (80-100); MONOCYTES # (AUTO) 0.5 K/uL (0.1-1.0); NEUTROPHILS # (AUTO) 12.5 K/uL (1.8-7.7); PLATELET COUNT (AUTO) 170 K/uL (150-450); RED BLOOD CELL COUNT(AUTO) 3.72 MIL/uL (4.50-5.90); RED CELL DISTRIBUTION WIDTH 13.4 % (11.5-14.5)
[2019-05-29 05:06] LABS: NEUTROPHILS % (AUTO) 93.2 % (40.0-70.0)
[2019-05-29 05:12] LABS: CALCIUM, TOTAL 9.3 mg/dL (8.8-10.5); CREATININE 1.34 mg/dL (0.60-1.30); POTASSIUM 3.4 mmol/L (3.5-5.1)
[2019-05-29] MEDS: LEVOTHYROXINE SODIUM 125 MCG TABLET PO SCH (06:12)
[2019-05-29] MEDS: BUDESONIDE 0.5 MG/2 ML NEB SOLUTION NEB SCH ×2 (07:16→21:31)
[2019-05-29 08:00] VITALS: BP 141/100
[2019-05-29] MEDS: ROSUVASTATIN CALCIUM 10 MG TABLET PO SCH (08:33)
[2019-05-29] MEDS: APIXABAN 2.5 MG TABLET PO SCH ×2 (08:34→20:14)
[2019-05-29] MEDS: CHOLECALCIFEROL (VIT D3) 1,000 UNITS TABLET PO SCH (08:34)
[2019-05-29] MEDS: OSELTAMIVIR PHOSPHATE 75 MG CAPSULE PO SCH (08:34)
[2019-05-29] MEDS: FERROUS SULFATE 325 MG EC TABLET PO SCH ×2 (08:35→16:37)
[2019-05-29] MEDS: ASPIRIN 81 MG EC TABLET PO SCH (08:35)
[2019-05-29] MEDS: FUROSEMIDE 20 MG TABLET PO SCH ×2 (08:35→20:14)
[2019-05-29] MEDS: BENZONATATE 100 MG CAPSULE PO SCH ×3 (08:35→20:14)
[2019-05-29] MEDS: FLUTICASONE/VILANTEROL 200-25 MCG/INH INHALER [14] IH SCH (08:36)
[2019-05-29] MEDS: GuaiFENesin SR 600 MG ER TABLET PO SCH ×2 (08:36→20:14)
[2019-05-29] MEDS: BIMATOPROST 0.01% 2.5 ML OPHTHALMIC SOLUTION OU SCH (08:37)
[2019-05-29] MEDS: LEVOFLOXACIN 750 MG/D5% WATER 150 ML IV SCH (08:39)
[2019-05-29] MEDS ORDERED: SODIUM CHLORIDE 0.9% 1,000 ML IV ONE (11:45)
[2019-05-29 12:00] VITALS: BP 139/98
[2019-05-29 16:00] VITALS: BP 125/86
[2019-05-29] MEDS ORDERED: DIGOXIN 250 MCG/ML 2 ML AMP IVP ONE (16:30)
[2019-05-29] MEDS ORDERED: POTASSIUM CHLORIDE 20 MEQ ER TABLET PO ONE (16:30)
[2019-05-29 20:11] VITALS: BP 147/68
[2019-05-29] MEDS: OSELTAMIVIR PHOSPHATE 30 MG CAPSULE PO SCH (20:14)
[2019-05-29] MEDS: AMIODARONE HCL 200 MG TABLET PO SCH (20:14)
[2019-05-30] VITALS (7 sets, daily range): BP systolic 121–159; BP diastolic 65–95
[2019-05-30] MEDS: MethylPREDNISolone SOD SUCC 125 MG/2 ML VIAL IVP SCH ×2 (00:04→08:10)
[2019-05-30] MEDS: LEVOTHYROXINE SODIUM 125 MCG TABLET PO SCH (06:26)
[2019-05-30 06:49] LABS: BASOPHILS % (AUTO) 0.1 % (0.0-2.0); EOSINOPHILS % (AUTO) 0 % (1.0-6.0); HEMOGLOBIN 10.6 g/dL (13.5-17.5); LYMPHOCYTES # (AUTO) 0.5 K/uL (1.0-4.8); LYMPHOCYTES % (AUTO) 3.3 % (22.0-44.0); MEAN CORPUSCULAR HEMOGLOBIN 29.9 pg (26.0-34.0); MEAN CORPUSCULAR HGB CONC 33.1 G/dL (31.0-37.0); MEAN CORPUSCULAR VOLUME 90 fL (80-100); MONOCYTES # (AUTO) 0.6 K/uL (0.1-1.0); MONOCYTES % (AUTO) 4.1 % (2.0-9.0); NEUTROPHILS # (AUTO) 13.2 K/uL (1.8-7.7); PLATELET COUNT (AUTO) 192 K/uL (150-450); RED BLOOD CELL COUNT(AUTO) 3.54 MIL/uL (4.50-5.90); RED CELL DISTRIBUTION WIDTH 13.1 % (11.5-14.5)
[2019-05-30 07:02] LABS: ANION GAP 10 mmol/L (8-16); CALCIUM, TOTAL 8.6 mg/dL (8.8-10.5); CARBON DIOXIDE 25 mmol/L (22-29); CHLORIDE 99 mmol/L (98-107); GLUCOSE,RANDOM 239 mg/dL (70-110); POTASSIUM 4.4 mmol/L (3.5-5.1); SODIUM SERUM 134 mmol/L (136-145); UREA NITROGEN, BLOOD 33 mg/dL (7-18)
[2019-05-30 07:03] LABS: NEUTROPHILS % (AUTO) 92.5 % (40.0-70.0)
[2019-05-30 07:15] LABS: GLOMERULAR FILTR. RATE CALC > 60 mL/min (>60)
[2019-05-30] MEDS: LEVOFLOXACIN 750 MG/D5% WATER 150 ML IV SCH (08:10)
[2019-05-30] MEDS: FLUTICASONE/VILANTEROL 200-25 MCG/INH INHALER [14] IH SCH (08:11)
[2019-05-30] MEDS: ROSUVASTATIN CALCIUM 10 MG TABLET PO SCH (08:11)
[2019-05-30] MEDS: FERROUS SULFATE 325 MG EC TABLET PO SCH ×2 (08:11→18:15)
[2019-05-30] MEDS: BIMATOPROST 0.01% 2.5 ML OPHTHALMIC SOLUTION OU SCH (08:11)
[2019-05-30] MEDS: AMIODARONE HCL 200 MG TABLET PO SCH ×2 (08:12→20:26)
[2019-05-30] MEDS: FUROSEMIDE 20 MG TABLET PO SCH ×2 (08:12→20:26)
[2019-05-30] MEDS: GuaiFENesin SR 600 MG ER TABLET PO SCH ×2 (08:12→20:25)
[2019-05-30] MEDS: APIXABAN 2.5 MG TABLET PO SCH ×2 (08:12→20:26)
[2019-05-30] MEDS: BENZONATATE 100 MG CAPSULE PO SCH ×3 (08:12→20:25)
[2019-05-30] MEDS: OSELTAMIVIR PHOSPHATE 30 MG CAPSULE PO SCH ×2 (08:12→20:27)
[2019-05-30] MEDS: ASPIRIN 81 MG EC TABLET PO SCH (08:12)
[2019-05-30] MEDS: CHOLECALCIFEROL (VIT D3) 1,000 UNITS TABLET PO SCH (08:13)
[2019-05-30] MEDS: BUDESONIDE 0.5 MG/2 ML NEB SOLUTION NEB SCH ×2 (08:52→20:39)
[2019-05-30] MEDS ORDERED: MethylPREDNISolone SOD SUCC 40 MG/ML VIAL IVP SCH (16:00)
[2019-05-30] MEDS: PredniSONE 20 MG TABLET PO SCH (17:03)
[2019-05-31 05:42] VITALS: BP 140/88
[2019-05-31] MEDS: LEVOTHYROXINE SODIUM 125 MCG TABLET PO SCH (06:46)
[2019-05-31 07:09] LABS: EOSINOPHILS % (AUTO) 0 % (1.0-6.0); HEMATOCRIT 33.6 % (41-53); HEMOGLOBIN 11.2 g/dL (13.5-17.5); LYMPHOCYTES # (AUTO) 0.5 K/uL (1.0-4.8); LYMPHOCYTES % (AUTO) 3.6 % (22.0-44.0); MEAN CORPUSCULAR HGB CONC 33.3 G/dL (31.0-37.0); MEAN CORPUSCULAR VOLUME 90 fL (80-100); MONOCYTES % (AUTO) 7.6 % (2.0-9.0); NEUTROPHILS # (AUTO) 11.2 K/uL (1.8-7.7); PLATELET COUNT (AUTO) 234 K/uL (150-450); RED BLOOD CELL COUNT(AUTO) 3.73 MIL/uL (4.50-5.90); RED CELL DISTRIBUTION WIDTH 13.3 % (11.5-14.5)
[2019-05-31 07:11] VITALS: BP 138/76
[2019-05-31 07:25] LABS: ANION GAP 7 mmol/L (8-16); CALCIUM, TOTAL 8.7 mg/dL (8.8-10.5); CARBON DIOXIDE 29 mmol/L (22-29); CHLORIDE 103 mmol/L (98-107); CREATININE 1.01 mg/dL (0.60-1.30); GLUCOSE,RANDOM 256 mg/dL (70-110); POTASSIUM 4.5 mmol/L (3.5-5.1); SODIUM SERUM 139 mmol/L (136-145); UREA NITROGEN, BLOOD 28 mg/dL (7-18)
[2019-05-31 07:27] LABS: NEUTROPHILS % (AUTO) 88.8 % (40.0-70.0)
[2019-05-31 07:28] LABS: GLOMERULAR FILTR. RATE CALC > 60 mL/min (>60)
[2019-05-31] MEDS: FERROUS SULFATE 325 MG EC TABLET PO SCH ×2 (08:26→18:08)
[2019-05-31] MEDS: LEVOFLOXACIN 750 MG/D5% WATER 150 ML IV SCH (08:26)
[2019-05-31] MEDS: FLUTICASONE/VILANTEROL 200-25 MCG/INH INHALER [14] IH SCH (08:26)
[2019-05-31] MEDS: BIMATOPROST 0.01% 2.5 ML OPHTHALMIC SOLUTION OU SCH (08:27)
[2019-05-31] MEDS: ROSUVASTATIN CALCIUM 10 MG TABLET PO SCH (08:27)
[2019-05-31] MEDS: PredniSONE 20 MG TABLET PO SCH (08:28)
[2019-05-31] MEDS: ASPIRIN 81 MG EC TABLET PO SCH (08:28)
[2019-05-31] MEDS: FUROSEMIDE 20 MG TABLET PO SCH ×2 (08:29→20:38)
[2019-05-31] MEDS: APIXABAN 2.5 MG TABLET PO SCH ×2 (08:29→20:39)
[2019-05-31] MEDS: GuaiFENesin SR 600 MG ER TABLET PO SCH ×2 (08:29→20:38)
[2019-05-31] MEDS: OSELTAMIVIR PHOSPHATE 30 MG CAPSULE PO SCH ×2 (08:30→20:39)
[2019-05-31] MEDS: CHOLECALCIFEROL (VIT D3) 1,000 UNITS TABLET PO SCH (08:30)
[2019-05-31] MEDS: AMIODARONE HCL 200 MG TABLET PO SCH ×2 (08:30→20:38)
[2019-05-31] MEDS: BENZONATATE 100 MG CAPSULE PO SCH ×3 (08:30→20:38)
[2019-05-31] MEDS ORDERED: SODIUM CHLORIDE 0.9% 250 ML IV ONE (09:23)
[2019-05-31] MEDS: BUDESONIDE 0.5 MG/2 ML NEB SOLUTION NEB SCH ×2 (09:29→20:29)
[2019-05-31] MEDS: IPRATROPIUM BROMIDE 0.5 MG/2.5 ML NEB SOLUTION NEB PRN (09:35)
[2019-05-31] MEDS: ALBUTEROL SULFATE 2.5 MG/0.5 ML NEB SOLUTION NEB PRN (09:36)
[2019-05-31 12:09] VITALS: BP 155/74
[2019-05-31 15:45] VITALS: BP 149/99
[2019-05-31] MEDS: HYDROCODONE/CHLORPHEN POLIS 10-8 MG/5 ML ORAL.SYG PO PRN (16:40)
[2019-05-31 19:52] VITALS: BP 142/81
[2019-05-31 23:47] VITALS: BP 123/67
[2019-06-01 04:24] VITALS: BP 125/84
[2019-06-01] MEDS: LEVOTHYROXINE SODIUM 125 MCG TABLET PO SCH (06:38)
[2019-06-01 06:55] LABS: BASOPHILS % (AUTO) 0.1 % (0.0-2.0); EOSINOPHILS % (AUTO) 0.2 % (1.0-6.0); HEMATOCRIT 35.3 % (41-53); HEMOGLOBIN 11.8 g/dL (13.5-17.5); LYMPHOCYTES # (AUTO) 1.1 K/uL (1.0-4.8); LYMPHOCYTES % (AUTO) 8.5 % (22.0-44.0); MEAN CORPUSCULAR HEMOGLOBIN 29.6 pg (26.0-34.0); MEAN CORPUSCULAR HGB CONC 33.3 G/dL (31.0-37.0); MEAN CORPUSCULAR VOLUME 89 fL (80-100); MONOCYTES # (AUTO) 1.2 K/uL (0.1-1.0); MONOCYTES % (AUTO) 9.1 % (2.0-9.0); NEUTROPHILS # (AUTO) 10.9 K/uL (1.8-7.7); NEUTROPHILS % (AUTO) 82.1 % (40.0-70.0); PLATELET COUNT (AUTO) 263 K/uL (150-450); RED BLOOD CELL COUNT(AUTO) 3.98 MIL/uL (4.50-5.90); RED CELL DISTRIBUTION WIDTH 13.3 % (11.5-14.5)
[2019-06-01 07:17] LABS: ANION GAP 5 mmol/L (8-16); CALCIUM, TOTAL 8.8 mg/dL (8.8-10.5); CARBON DIOXIDE 31 mmol/L (22-29); CHLORIDE 99 mmol/L (98-107); GLUCOSE,RANDOM 122 mg/dL (70-110); POTASSIUM 3.6 mmol/L (3.5-5.1); SODIUM SERUM 135 mmol/L (136-145); UREA NITROGEN, BLOOD 21 mg/dL (7-18)
[2019-06-01 07:20] LABS: GLOMERULAR FILTR. RATE CALC > 60 mL/min (>60)
[2019-06-01 07:46] VITALS: BP 136/85
[2019-06-01] MEDS: BUDESONIDE 0.5 MG/2 ML NEB SOLUTION NEB SCH (08:09)
[2019-06-01] MEDS: LEVOFLOXACIN 750 MG/D5% WATER 150 ML IV SCH (08:47)
[2019-06-01] MEDS: FERROUS SULFATE 325 MG EC TABLET PO SCH ×2 (08:48→17:44)
[2019-06-01] MEDS: ROSUVASTATIN CALCIUM 10 MG TABLET PO SCH (08:48)
[2019-06-01] MEDS: PredniSONE 20 MG TABLET PO SCH (08:48)
[2019-06-01] MEDS: FLUTICASONE/VILANTEROL 200-25 MCG/INH INHALER [14] IH SCH (08:48)
[2019-06-01] MEDS: APIXABAN 2.5 MG TABLET PO SCH (08:49)
[2019-06-01] MEDS: ASPIRIN 81 MG EC TABLET PO SCH (08:49)
[2019-06-01] MEDS: FUROSEMIDE 20 MG TABLET PO SCH (08:50)
[2019-06-01] MEDS: AMIODARONE HCL 200 MG TABLET PO SCH (08:50)
[2019-06-01] MEDS: GuaiFENesin SR 600 MG ER TABLET PO SCH (08:50)
[2019-06-01] MEDS: BENZONATATE 100 MG CAPSULE PO SCH ×2 (08:50→16:27)
[2019-06-01] MEDS: OSELTAMIVIR PHOSPHATE 30 MG CAPSULE PO SCH (08:50)
[2019-06-01] MEDS: CHOLECALCIFEROL (VIT D3) 1,000 UNITS TABLET PO SCH (08:51)
[2019-06-01] MEDS: BIMATOPROST 0.01% 2.5 ML OPHTHALMIC SOLUTION OU SCH (09:44)
[2019-06-01 11:42] VITALS: BP 149/94
[2019-06-01] MEDS ORDERED: OSEL30CA PO (14:29)
[2019-06-01] MEDS ORDERED: CLIN300C3 PO (14:29)
[2019-06-01] MEDS ORDERED: PRED10TA3 PO (14:29)
[2019-06-01] MEDS ORDERED: LEVO750T21 PO (14:29)
[2019-06-01] MEDS ORDERED: PRED20 PO (14:29)
[2019-06-01] MEDS ORDERED: PRED5 PO (14:29)
[2019-06-01] MEDS ORDERED: APIX2.5T PO (14:29)
[2019-06-01] MEDS ORDERED: BENZ100C68 PO (14:29)
[2019-06-01] MEDS ORDERED: AMIO100T4 PO (14:29)
[2019-06-01 15:50] VITALS: BP 136/88
== END 2019-06-01 17:10 | disposition home or self-care (01) | DRG 469 ==
LOC: EMS 20:09 → 5S 05-28 02:03 → ICU 05-28 03:20 → 5S 05-29 19:35
PROVIDERS: ADMIT Internal Medicine; ATTEND Internal Medicine
PROC: 5A09357 Assistance with Respiratory Ventilation, Less than 24 Consecutive Hours, Continuous Positive Airway Pressure (ICD-10-PCS; principal; 2019-05-28)
DX: N17.9 Acute kidney failure, unspecified (principal); J96.01 Acute respiratory failure with hypoxia; J10.00 Influenza due to other identified influenza virus with unspecified type of pneumonia; I48.20 Chronic atrial fibrillation, unspecified; I11.0 Hypertensive heart disease with heart failure; J44.1 Chronic obstructive pulmonary disease with (acute) exacerbation; R65.10 Systemic inflammatory response syndrome (SIRS) of non-infectious origin without acute organ dysfunction; I50.22 Chronic systolic (congestive) heart failure; E78.5 Hyperlipidemia, unspecified; N40.0 Benign prostatic hyperplasia without lower urinary tract symptoms; H40.9 Unspecified glaucoma; E03.9 Hypothyroidism, unspecified; E56.9 Vitamin deficiency, unspecified; I25.10 Atherosclerotic heart disease of native coronary artery without angina pectoris; K21.9 Gastro-esophageal reflux disease without esophagitis; E78.00 Pure hypercholesterolemia, unspecified; Z87.891 Personal history of nicotine dependence; Z95.0 Presence of cardiac pacemaker
CPT/HCPCS: 83605; 85379; 87040; 87070; 87081; 87205; 87804; 93005; 93306; 94640; 94644; 94660; 96365; 97162; G0378; J0282; J0456; J1160; J1956; J2543; J2930; J3370; J7030; J7050; J7060